=== PATIENT | female | born 1950 | race Caucasian/White ===

== ENCOUNTER 2018-04-25 00:29 | Outpatient (CLI) | payer MEDICARE, SELFPAY ==
--- NOTE | 2018-04-25 08:49 | DI.MAMMO_ITS ---
SYMPTOMS/DIAGNOSIS: SCREENING, Z12.39 MAMMOGRAMS: Mammograms were interpreted according to the usual protocol including computer analysis with CAD system, tomosynthesis and C view imaging. Comparison is with the prior examinations. No suspicious masses or microcalcifications are seen. There has been no significant change compared to the prior examination. The nodule in the supraareolar region of the right breast is unchanged. Skin and axillae are unremarkable. IMPRESSION: No evidence for malignancy. Yearly mammography is recommended. Category 2, breast density B. MQSA ASSESSMENT OF FINDINGS: Negative with benign findings. Category 2. Patient will receive a letter notifying them of these results. BI-RADS category B. There are scattered areas of fibroglandular density.
== END 2018-04-25 00:49 ==
PROVIDERS: PCP Nurse Practitioner; Visit Provider Nurse Practitioner
DX: Z12.31 Encounter for screening mammogram for malignant neoplasm of breast (principal)
CPT/HCPCS: 77063; 77067

== ENCOUNTER 2018-09-30 08:57 | Outpatient (REF) | payer MEDICARE, SELFPAY ==
[2018-09-30 13:36] LABS: ALT 34 U/L (12-78); AST 22 U/L (15-37); Albumin 3.9 g/dL (3.4-5.0); Alkaline Phosphatase 79 U/L (46-116); Anion Gap 8.4 mmol/L (3-11); BUN 19 mg/dL (7-18); Bilirubin, Total 0.5 mg/dL (0.2-1.0); CO2 30.6 mmol/L (21.0-32.0); CREATININE 0.91 mg/dL (0.55-1.02); Calcium 9.1 mg/dL (8.5-10.1); Chloride 102 mmol/L (98-107); Cholesterol 158 mg/dL (50-200); Glucose 89 mg/dL (70-100); HDL Cholesterol 73 mg/dL (40-60); LDL CHOLESTEROL 66 mg/dL (<100); Sodium 141 mmol/L (136-145); TSH (W/Ref FT4) 1.84 uIU/mL (0.358-3.74); Total Protein 6.6 g/dL (6.4-8.2); Triglyceride 85 mg/dL (30-150)
== END 2018-09-30 09:17 ==
LOC: NCHCN 08:57
PROVIDERS: PCP Nurse Practitioner; Visit Provider Nurse Practitioner
DX: E78.5 Hyperlipidemia, unspecified (principal); I10 Essential (primary) hypertension; E03.9 Hypothyroidism, unspecified
CPT/HCPCS: 80053; 80061; 83721; 84443

== ENCOUNTER 2019-05-22 11:08 | Emergency (ER) | payer MEDICARE, OTHER, SELFPAY ==
[2019-05-22] VITALS (41 sets, daily range): BP systolic 109–184; BP diastolic 51–95; PULSE 65–88; RESP 12–25; TEMP 36.9; O2SAT 89–99
--- NOTE | 2019-05-22 11:10 | W.ED.GENAD ---
Discharge Plan Disposition Patient Disposition: HOME Condition: Improving Discharge Details Chief Complaint: Dizzy/Sync Clinical Impression: Vertigo, Nausea Primary Care Provider: Gail Salvador ED Provider: Angela Vásquez Home Meds and New Rx's Prescriptions: New meclizine 12.5 mg tablet 12.5 mg PO TID PRN (Reason: dizziness) Qty: 10 RF: 0 ondansetron HCl [Zofran] 4 mg tablet 4 mg PO Q6H PRN (Reason: nausea and vomiting) Qty: 7 RF: 0 Continued clobetasol 15 GM cream 1 applic Topical BID PRN PRNRF: 0 Premarin 30 GM cream 1 applic VG DIRECTED RF: 0 acetaminophen 325 MG capsule 650 mg PO Q6H PRN PRNRF: 0 calcium carbonate-vitamin D3 [Calcium 500 + D] 1 EACH tablet 4 ea PO DAILY RF: 0 atorvastatin [Lipitor] 20 MG tablet 20 mg PO DAILY RF: 0 atenolol 100 MG tablet 100 mg PO DAILY RF: 0 amlodipine 5 MG tablet 5 mg PO DAILY RF: 0 levothyroxine 88 MCG tablet 88 mcg PO DAILY RF: 0 hydrochlorothiazide 12.5 MG capsule 12.5 mg PO DAILY RF: 0 lisinopril 40 MG tablet 40 mg PO DAILY RF: 0 cholecalciferol (vitamin D3) [Vitamin D3] 2,000 UNIT capsule 2,000 unit PO DAILY RF: 0 ibuprofen 200 MG tablet 800 mg PO 5X/DAY RF: 0 Discharge Instructions Instructions: Vertigo (ED), Acute Nausea and Vomiting (ED) Additional Instructions: Take the Zofran as needed and directed for nausea and vomiting. Take the meclizine as needed and directed for dizziness. Drink plenty of fluids and get plenty of rest. Follow-up with your primary care doctor next week for reevaluation. Return to the emergency department if you develop any worsening or new concerning symptoms. Discharge Data Discharge Physician: Angela Vásquez Medical Decision Making 1115 -- 69-year-old female with history of hypertension, hyperlipidemia, scoliosis presents with dizziness, nausea and generalized weakness with occasional body tingling since this morning. She also expressed concern about her blood pressure. She states it is usually 140s over 80s and today was 180s over 80s. BP on arrival 184/72. Shortly after placement on stretcher and during evaluation patient became nauseous and was dry heaving. This was associated with head movement during examination and appears likely consistent with vertigo. EKG was obtained which notes an abnormally wide QRS consistent with an interventricular conduction defect but otherwise appears sinus with diffuse ST depression and T wave inversion. This does not appear overall significantly different from her previous EKG other than more pronounced T wave inversion in 1, 2 and aVL. Presentation appears most consistent with vertigo, but considering age and history, will check screening labs, chest x-ray and CT head. She was given Zofran and her symptoms significantly improved. We will give a dose of meclizine, fluids and reassess. 1250 -- labs reviewed and unremarkable. Troponin negative. Urinalysis negative. CT head and chest x-ray appear negative for acute disease but final reads pending. Patient got up to use commode and began dry heaving and complaining of severe dizziness. She given a dose of Compazine but without relief. Will give another dose of meclizine and Zofran and reassess. 1350 -- patient states she feels slightly better. Offered to do the Lola maneuver to see if this provides her relief but she states she is not too much pain with her scoliosis. Will give a dose of Toradol IM and Valium p.o. to also help with the dizziness and then reassess. 1500 -- Lola maneuver performed and pt felt much better. Will give crackers and water and reassess after p.o. challenge. 1530 -- patient able to tolerate p.o. and is requesting to go home. She was able to ambulate and denies any dizziness or nausea. We will send home with Zofran and meclizine. She is advised to follow-up with her primary care doctor for reevaluation and to return here if worse. Medical Records Medical records reviewed: Yes I reviewed the patient's medical records. Imaging Data Radiologic Study: Radiologist's impression: XR CHEST 2V PA LATERAL INDICATION: dizziness, nausea, fatigue, r/o acute disease. COMPARISON: LUMBAR SPINE AP, LAT from 05/03/2016 TECHNIQUE: 2D digital imaging was performed. FINDINGS: The heart is enlarged. The aorta is tortuous. There underlying fibrotic changes. No infiltrate, effusion or pulmonary edema is seen. There is a compression fracture of lower thoracic spine, unchanged from 03 May 2016. IMPRESSION: No acute abnormality. CT HEAD WO` CLINICAL HISTORY: dizziness, nausea, r/o acute disease TECHNIQUE: Noncontrast COMPARISON: No exams were available for comparison FINDINGS: No intracranial hemorrhage, mass or infarct is seen. There is no significant atrophy. No skull fracture is seen. The sinuses and mastoid air cells appear clear where visualized. IMPRESSION: No acute abnormality. Lab Data Lab results reviewed: Yes I reviewed the patient's lab results. Labs: Laboratory Tests Range/Units 05/22/19 05/22/19 05/22/19 11:17 11:17 12:22 WBC (4.4-10.8) k/cumm 7.25 RBC (4.00-5.20) m/cumm 4.73 Hgb (12.0-15.5) g/dL 14.2 Hct (36.0-46.0) % 43.7 MCV (80-95) fL 92.4 MCH (27.0-33.0) pg 30.0 MCHC (32.0-36.0) g/dL 32.5 RDW (11.7-14.6) % 12.5 Plt Count (130-400) x1000/uL 286 MPV (8.0-11.0) fL 8.9 Immature Gran % 0.1 Neutrophils % 81.2 Lymphocytes % 10.9 Monocytes % 4.8 Eosinophils % 2.6 Basophils % 0.4 Absolute Neutrophils (1.2-6.7) k/cumm 5.88 Absolute Lymphocytes (1.2-3.4) k/cumm 0.79 L Absolute Monocytes (0.11-0.7) k/cumm 0.35 Absolute Eosinophils (0.0-0.7) k/cumm 0.19 Absolute Basophils (0.0-0.2) k/cumm 0.03 Sodium (136-145) mmol/L 135 L Potassium (3.5-5.1) mmol/L 3.6 Chloride (98-107) mmol/L 96 L Carbon Dioxide (21.0-32.0) mmol/L 28.9 Anion Gap (3-11) mmol/L 10.1 BUN (7-18) mg/dL 16 Creatinine (0.55-1.02) mg/dL 0.92 Estimated GFR/1.73 m2 (mL/min/1.73m2) >= 60.00 Glucose (70-100) mg/dL 138 H Calcium (8.5-10.1) mg/dL 9.5 Magnesium (1.8-2.4) mg/dL 1.9 Total Bilirubin (0.2-1.0) mg/dL 0.6 AST (15-37) U/L 20 ALT (14-59) U/L 32 Alkaline Phosphatase (46-116) U/L 88 Troponin I (0.00-0.06) ng/mL < 0.05 Total Protein (6.4-8.2) g/dL 7.7 Albumin (3.4-5.0) g/dL 4.5 Urine Color (Yellow) Yellow Urine Clarity (Clear) Clear Urine pH (5-8) 7.5 Ur Specific [place] (1.005-1.025) 1.020 Urine Protein (Negative) mg/dL Negative Urine Ketones (Negative) mg/dL Negative Urine Blood (Negative) Trace-intact H Urine Nitrite (Negative) Negative Urine Bilirubin (Negative) Negative Urine Urobilinogen (Up TO 0.2) EU/dL 0.2 Ur Leukocyte Esterase (Negative) Negative Urine RBC (0-2) 3-5 H Urine WBC (0-5) HPF Negative Ur Epithelial Cells (Negative) HPF Negative Urine Crystals (Negative) HPF Negative Urine Bacteria (Negative) HPF Rare Urine Casts (Negative) LPF Negative Urine Mucus (Negative) Negative Urine Other (Negative) Few renal Ur Culture Indicated? No Urine Glucose (Negative) mg/dL Negative ECG Data Attestation: I personally reviewed and interpreted this ECG (s) as follows: Interpretation: 77 bpm. Sinus. Intraventricular conduction defect. Diffuse ST depression. T wave inversion in 1, 2, aVL, 3, aVF, V2, V4 V6. Overall not significantly different from old EKG from 2005 other than more pronounced T wave inversion in 1, 2 and aVL and downward QRS in V3. HPI General Mode of arrival: ambulatory. Date/Time Provider Initiated Documentation: 05/22/19 11:09. Limitations to Documentation: no limitations. Information obtained by: patient. HPI Narrative: Patient is a 69-year-old female with a history of hypertension, hyperlipidemia who presents for dizziness, nausea and all of her body generalized weakness and occasional tingling that started this morning upon wakening. She states that the dizziness is her worst symptom which is described as lightheadedness but also a spinning sensation that is worse with head movement. She denies any recent illness, fever, vomiting, diarrhea or recent hospital admission. She states she has had dizziness and nausea in the past but states this is the worst presentation thus far. She denies any headache, blurry vision, neck pain, chest pain, shortness of breath, abdominal pain, urinary symptoms, slurred speech, facial droop or unilateral extremity weakness or numbness. Related Data Home Medications Medication Instructions Recorded Confirmed Premarin 1 applic VG DIRECTED 04/24/16 05/22/19 acetaminophen 650 mg PO Q6H PRN PRN 04/24/16 05/22/19 amlodipine 5 mg PO DAILY 04/24/16 05/22/19 atenolol 100 mg PO DAILY 04/24/16 05/22/19 atorvastatin [Lipitor] 20 mg PO DAILY 04/24/16 05/22/19 calcium carbonate-vitamin D3 4 ea PO DAILY 04/24/16 05/22/19 [Calcium 500 + D] cholecalciferol (vitamin D3) 2,000 unit PO DAILY 04/24/16 05/22/19 [Vitamin D3] clobetasol 1 applic TOPICAL BID PRN PRN 04/24/16 05/22/19 hydrochlorothiazide 12.5 mg PO DAILY 04/24/16 05/22/19 levothyroxine 88 mcg PO DAILY 04/24/16 05/22/19 lisinopril 40 mg PO DAILY 04/24/16 05/22/19 ibuprofen 800 mg PO 5X/DAY 04/27/16 05/22/19 meclizine 12.5 mg PO TID PRN #10 tab 05/22/19 ondansetron HCl [Zofran] 4 mg PO Q6H PRN #7 tab 05/22/19 Previous Rx's Medication Instructions Recorded meclizine 12.5 mg PO TID PRN #10 tab 05/22/19 ondansetron HCl [Zofran] 4 mg PO Q6H PRN #7 tab 05/22/19 Allergies Allergy/AdvReac Type Severity Reaction Status Date / Time iodine Allergy Severe Unverified 05/22/19 11:19 latex Allergy Mild Unverified 05/22/19 11:19 Penicillins Allergy Mild Unverified 05/22/19 11:19 mold Allergy Unknown Unverified 05/22/19 11:19 Review of Systems All systems reviewed & are unremarkable except as noted in HPI and below Constitutional Constitutional: Reports as per HPI, Denies chills, Reports fatigue, Denies fever(s) and Denies headache(s) Eyes Eyes: Denies blurry vision ENT Ears, Nose, Mouth, and Throat: Reports dizziness, Denies headache(s), Denies sore throat and Denies throat swelling Cardiovascular Cardiovascular: Denies chest pain and Denies dyspnea Respiratory Respiratory: Denies cough and Denies dyspnea Gastrointestinal Gastrointestinal: Denies abdominal pain, Denies diarrhea, Reports nausea and Denies vomiting Genitourinary Genitourinary: Denies hematuria and Denies dysuria Musculoskeletal Musculoskeletal: Denies back pain and Denies numbness Integumentary/Breasts Skin/Breast: Denies lesions and Denies rash Neurologic Neurologic: Reports dizziness, Denies headache(s), Denies focal weakness and Denies numbness Endocrine Endocrine: Reports fatigue Allergic/Immunologic Allergic/Immunologic: Denies throat swelling [facility] Medical History HTN (hypertension) (Chronic) Hx of hyperlipidemia (Acute) Thyroid nodule (Acute) Multiple, benign Surgical History History of hysterectomy (Chronic) due to h/o large fibroid tumor, benign History of sterilization procedure (Acute) History of thyroidectomy (Chronic) Social History Smoking/Tobacco Use Status: Never Alcohol Intake: never Drug use: Never Substance use type: does not use Do you feel safe at home: Yes Do you feel safe in your relationship?: Yes Exam Const General: cooperative and healthy appearing Orientation: alert and awake HENMT Head: normal to inspection Ears: hearing grossly normal bilaterally, external ears normal and TM's normal bilaterally General nose exam: external nose normal Face and sinus: normal facial exam Mouth: oral mucosae normal Teeth and gingiva: dentition normal Throat: posterior oropharynx normal Eyes General: appearance normal, both eyes and all related structures Eyelids: eyelids normal Pupils: PERRL EOM: EOM intact bilaterally Neck Neck: normal visual inspection Lymphatic: no lymphadenopathy noted Chest Chest: normal inspection of the chest Resp Effort & Inspection: normal respiratory effort and able to speak in complete sentences Auscultation: clear to auscultation bilaterally Cardio Rate: regular rate Rhythm: regular rhythm GI Inspection: normal to inspection Palpation: soft, not firm, no guarding, no hepatosplenomegaly, no masses and nontender Auscultation: normal bowel sounds Back/Spine/Pelvis Thoracic/Lumbar Spine: kyphosis (due to h/o scoliosis) Skin General skin exam: no rashes or lesions noted Neuro General: alert, awake, oriented x3, moves all extremities and no meningeal signs Cranial Nerves: CN's II-XI intact bilaterally Cognition: normal cognition Speech: speech normal Gait: normal gait Motor: muscle tone normal throughout and strength 5/5 throughout Sensory Exam: no sensory deficits noted Extrem General: normal to inspection, full ROM and normal capillary refill Psych Appearance: grossly normal Mental Status: mental status grossly normal Speech and Movement: speech and movement normal Affect: normal affect Thought Process: normal
[2019-05-22] MEDS: Ondansetron 4 MG/2 ML VIAL ×2 (11:30→13:14)
[2019-05-22] MEDS: Normal Saline 1,000 ML 1000 ML IV (11:30)
--- NOTE | 2019-05-22 11:34 | DI.RAD_ITS ---
EXAM: XR CHEST 2V PA LATERAL INDICATION: dizziness, nausea, fatigue, r/o acute disease. COMPARISON: LUMBAR SPINE AP, LAT from 05/03/2016 TECHNIQUE: 2D digital imaging was performed. FINDINGS: The heart is enlarged. The aorta is tortuous. There underlying fibrotic changes. No infiltrate, e ffusion or pulmonary edema is seen. There is a compression fracture of lower thoracic spine, [facility] ed from 03 May 2016. IMPRESSION: No acute abnormality.
[2019-05-22 11:54] LABS: Abs Immature Grans 0.01 k/cumm (0.0-0.09); Absolute Basophil Count 0.03 k/cumm (0.0-0.2); Absolute Eosinophil Count 0.19 k/cumm (0.0-0.7); Absolute Lymphocyte Count 0.79 k/cumm (1.2-3.4); Absolute Monocyte Count 0.35 k/cumm (0.11-0.7); Absolute Neutrophil Count 5.88 k/cumm (1.2-6.7); Basophils % 0.4; Eosinophils % 2.6; HCT 43.7 % (36.0-46.0); HGB 14.2 g/dL (12.0-15.5); Immature Grans % 0.1; Lymphocytes % 10.9; Mean Corp. HGB Concentration 32.5 g/dL (32.0-36.0); Mean Corpuscular Volume 92.4 fL (80-95); Mean Platelet Volume 8.9 fL (8.0-11.0); Monocytes % 4.8; Neutrophils % 81.2; Platelet Count 286 x1000/uL (130-400); RBC 4.73 m/cumm (4.00-5.20); RBC Distribution Width 12.5 % (11.7-14.6); White Blood Cell Count 7.25 k/cumm (4.4-10.8)
--- NOTE | 2019-05-22 11:59 | DI.CT_ITS ---
EXAM: CT HEAD WO` CLINICAL HISTORY: dizziness, nausea, r/o acute disease TECHNIQUE: Noncontrast COMPARISON: No exams were available for comparison FINDINGS: No intracranial hemorrhage, mass or infarct is seen. There is no significant atrophy. No skull frac ture is seen. The sinuses and mastoid air cells appear clear where visualized. IMPRESSION: No acute abnormality.
[2019-05-22 12:08] LABS: ALT 32 U/L (14-59); AST 20 U/L (15-37); Albumin 4.5 g/dL (3.4-5.0); Alkaline Phosphatase 88 U/L (46-116); Anion Gap 10.1 mmol/L (3-11); BUN 16 mg/dL (7-18); Bilirubin, Total 0.6 mg/dL (0.2-1.0); CO2 28.9 mmol/L (21.0-32.0); CREATININE 0.92 mg/dL (0.55-1.02); Calcium 9.5 mg/dL (8.5-10.1); Chloride 96 mmol/L (98-107); Glucose 138 mg/dL (70-100); Magnesium 1.9 mg/dL (1.8-2.4); Potassium 3.6 mmol/L (3.5-5.1); Sodium 135 mmol/L (136-145); Total Protein 7.7 g/dL (6.4-8.2)
[2019-05-22 12:14] LABS: Troponin I < 0.05 ng/mL (0.00-0.06)
[2019-05-22] MEDS: Prochlorperazine 10 MG/2 ML VIAL (12:15)
[2019-05-22] MEDS: Meclizine 25 MG TAB PO ×2 (12:16→12:46)
[2019-05-22 12:35] LABS: Bilirubin Negative (Negative); Blood Trace-intact (Negative); Clarity Clear (Clear); Glucose Negative (Negative); Ketones Negative (Negative); Leukocyte Esterase Negative (Negative); Nitrite Negative (Negative); Urobilinogen 0.2 EU/dL (Up TO 0.2); pH 7.5 (5-8)
[2019-05-22 12:52] LABS: Bacteria Rare HPF (Negative); C & S Indicated? No; Casts Negative LPF (Negative); Crystals Negative HPF (Negative); Epithelial Cells Negative HPF (Negative); Mucus Negative (Negative); Other Cells Few Renal (Negative); WBC Negative HPF (0-5)
[2019-05-22] MEDS: Normal Saline 250 ML IV (13:16)
--- NOTE | 2019-05-22 13:18 | NUR.NOTE ---
Nursing Note: pt had reported initial improvement with nausea from initial dose of zofran. pt becomes very dizzy and nauseated with any movement. pt has been up and down to the commode several times independently (takes a diuretic). pt reports no improvement with compazine. no changes with meclizine. md aware. continue to monitor. has been in and out of the room.
--- NOTE | 2019-05-22 13:24 | DI.VRAD_ITS ---
PROCEDURE INFORMATION: Exam: CT Head Without Contrast Exam date and time: 05/22/2019 11:59 AM Clinical history: 69 years old, female; Dizziness and other: Nausea; Patient HX: Dizziness, nausea; Additional info: R/O acute disease; Sent stroke protocol per ED provider TECHNIQUE: Imaging protocol: Computed tomography of the head without contrast. Other technique: STROKE PROTOCOL was implemented. COMPARISON: No relevant prior studies available. FINDINGS: Brain: No CT evidence of mass hemorrhage or acute infarction. Midline shift: No bleed, mass, or shift of structures. Mild atrophy. Areas of low attenuation in the periventricular white matter believed to be the manifestatiion of small vessel ischemic disease. Ventricles: Normal. No ventriculomegaly. Bones/joints: Unremarkable. No acute fracture. Sinuses: Visualized sinuses are unremarkable. No fluid levels. Mastoid air cells: Visualized mastoid air cells are well aerated. Soft tissues: Unremarkable. IMPRESSION: No acute intracranial process is appreciated. ASSESSMENT: ASPECTS ([place] Stroke Program Early CT Score) is 10. Dictated and Authenticated by: Charles Quispe MD. Ordering:BRITTNY Miller MD
[2019-05-22] MEDS: Ketorolac 30 MG/ML VIAL IVP (14:01)
[2019-05-22] MEDS: diazePAM 5 MG TAB PO (14:01)
[2019-05-22] MEDS: Ondansetron O.D.T. 4 MG TABEF, 3 TABS/BTL PO (15:41)
== END 2019-05-22 15:45 | disposition home or self-care (01) ==
PROVIDERS: Emergency Provider Physician Assistant; PCP Nurse Practitioner
DX: R42 Dizziness and giddiness (principal); R11.0 Nausea; I10 Essential (primary) hypertension
CPT/HCPCS: 36415; 80053; 93005; 96361; 96374; 96375; 99285; 70450; 71046; 81003; 81015; 83735; 84484; 85025; 93010; J0780; J1885; J2405

== ENCOUNTER 2019-10-07 12:17 | Outpatient (REF) | payer MEDICARE, OTHER, SELFPAY ==
[2019-10-07 14:03] LABS: ALT 33 U/L (14-59); AST 20 U/L (15-37); Alkaline Phosphatase 79 U/L (46-116); Anion Gap 6.4 mmol/L (3-11); BUN 19 mg/dL (7-18); Bilirubin, Total 0.5 mg/dL (0.2-1.0); CO2 30.6 mmol/L (21.0-32.0); CREATININE 0.89 mg/dL (0.55-1.02); Calcium 8.8 mg/dL (8.5-10.1); Calculated LDL 71 mg/dL (<100); Chloride 103 mmol/L (98-107); Cholesterol 165 mg/dL (<200); Glucose 97 mg/dL (74-106); HDL Cholesterol 80 mg/dL (40-60); Potassium 3.9 mmol/L (3.5-5.1); Sodium 140 mmol/L (136-145); TSH (W/Ref FT4) 2.06 uIU/mL (0.36-3.74); Total Protein 6.5 g/dL (6.4-8.2); Triglyceride 72 mg/dL (<150)
== END 2019-10-07 12:37 ==
LOC: NCHCN 12:17
PROVIDERS: PCP Nurse Practitioner; Visit Provider Nurse Practitioner
DX: I10 Essential (primary) hypertension (principal); E03.9 Hypothyroidism, unspecified; E78.5 Hyperlipidemia, unspecified
CPT/HCPCS: 80053; 80061; 84443

== ENCOUNTER 2020-01-12 21:39 | Outpatient (REF) | payer MEDICARE, OTHER, SELFPAY ==
[2020-01-12 19:22] LABS: Ferritin 29 ng/mL (8-252)
== END 2020-01-12 21:59 ==
LOC: NCHCN 21:39
PROVIDERS: PCP Nurse Practitioner; Visit Provider Nurse Practitioner
DX: R00.2 Palpitations (principal); G25.81 Restless legs syndrome
CPT/HCPCS: 82728

== ENCOUNTER 2020-06-28 00:24 | Outpatient (CLI) | payer MEDICARE, OTHER, SELFPAY ==
--- NOTE | 2020-06-28 | DI.MAMMO_ITS ---
EXAM: MG MAMMO SCREENING CLINICAL HISTORY: SCREENING,Z12.39. TECHNIQUE: Bilateral full field digital CC and MLO mammographic images were obtained with 3D tomosyn thesis and utilizing computer aided detection (CAD). COMPARISON: Prior mammograms dating back to 2011, the most recent being April 2018. FINDINGS: There are no new dominant masses nor malignant appearing microcalcification groups. There is no new architectural distortion nor skin thickening-retraction. IMPRESSION: No radiographic evidence of malignancy. BI-RADS Category 1 - Negative Breast Density - Category B - Scattered areas of fibroglandular density Breast density Category C or D implies that the patient has dense breast tissue. Dense breast tissue can make it harder to find cancer on a mammogram. Dense breast tissue is also associated with an incr eased risk of breast cancer. This information about the result of the mammogram report was provided to the patient to raise their awareness. Use this report when you speak with the patient about their risks for breast cancer, which includes their family history. At that time, you may recommend additional screening tests (Ultrasoun d or MRI) as these tests may add significant information. A negative radiographic report should not delay biopsy if a dominant or clinically suspicious mass is present. Up to ten percent of cancers are not identified on mammography. A negative report may reinforce clinical impression. Adenosis and dense breasts may obscure an underlying neoplasm. False positive reports average 6 to 10%. Patient will receive a letter notifying them of these results.
== END 2020-06-28 00:44 ==
PROVIDERS: PCP Nurse Practitioner; Visit Provider Nurse Practitioner
DX: Z12.31 Encounter for screening mammogram for malignant neoplasm of breast (principal)
CPT/HCPCS: 77063; 77067

== ENCOUNTER 2020-09-14 09:57 | Outpatient (REF) | payer MEDICARE, OTHER, SELFPAY ==
[2020-09-14 17:40] LABS: ALT 27 U/L (14-59); AST 18 U/L (15-37); Albumin 4.1 g/dL (3.4-5.0); Alkaline Phosphatase 81 U/L (46-116); Anion Gap 10.1 mmol/L (3-11); BUN 19 mg/dL (7-18); Bilirubin, Total 0.4 mg/dL (0.2-1.0); CO2 27.9 mmol/L (21.0-32.0); CREATININE 0.9 mg/dL (0.55-1.02); Calculated LDL 68 mg/dL (<100); Chloride 97 mmol/L (98-107); Cholesterol 165 mg/dL (<200); Glucose 96 mg/dL (74-106); HDL Cholesterol 80 mg/dL (40-60); Potassium 4.4 mmol/L (3.5-5.1); Sodium 135 mmol/L (136-145); TSH (W/Ref FT4) 0.98 uIU/mL (0.36-3.74); Total Protein 6.6 g/dL (6.4-8.2); Triglyceride 85 mg/dL (<150)
== END 2020-09-14 09:58 | disposition home or self-care (01) ==
LOC: NCHCN 09:57
PROVIDERS: PCP Nurse Practitioner; Visit Provider Nurse Practitioner
DX: I10 Essential (primary) hypertension (principal); E78.5 Hyperlipidemia, unspecified; E03.9 Hypothyroidism, unspecified
CPT/HCPCS: 80053; 80061; 84443

== ENCOUNTER → 2021-01-28 08:46 | Outpatient (BNVA) | payer MEDICARE, OTHER, SELFPAY | PROVIDERS: PCP Nurse Practitioner; Referring Provider Nurse Practitioner; Visit Provider Physical Therapy Assistant | DX: Z12.11 Encounter for screening for malignant neoplasm of colon (principal); I10 Essential (primary) hypertension ==

== ENCOUNTER 2021-02-07 09:05 | Day surgery (SDC) | payer MEDICARE, OTHER, SELFPAY ==
--- NOTE | 2021-02-07 06:00 | RT.EKG_ITS ---
APPROVED REPORT Exam: Resting ECG Reason for Exam: Pre-op Patient Location: O HR:72 bpm ECG Measurements Heart Rate 72 AXIS DC 179 P 62 QRSd 169 QRS 27 QT 465 T 199 QTc 510 Conclusion Sinus rhythm...normal P axis, V-rate 60- 99 Left bundle branch block...QRSd>120, broad/notched R
--- NOTE | 2021-02-07 06:43 | W.COLOREPORT ---
Date of service: 02/07/21 Time of Service: : Colonoscopy Report Date of procedure: 02/07/21 Pre-op diagnosis general: Colon Cancer Screening Post-op diagnosis procedure note: same (diverticulosis and internal hemorrhoids) Procedure: Colonoscopy Surgeon: Greta Santoro Anesthesia Type: General:No Airway (ASA 2/ Kel Ross CRNA) Estimated blood loss (mL): 0 Pathology: none sent Complications: None Disposition: same day Indications: The patient is here for Colonoscopy pre-op. Her last screening was in 2010 and was unremarkable. She has no family history of colon cancer. She has not had any bowel habit changes. -Discussed colonoscopy bowel prep as well as the procedure. Discussed possible complications of the procedure to include bleeding, pain, perforation, missed small lesion/polyp, sore throat, aspiration and adverse reaction to the medications. Questions were answered to patient?s satisfaction. No guarantees were implied or given. Prep: Miralax/Dulcolax Procedure Start Time: :22 Procedure End Time: 10:48 Retraction Time: 13 minutes Findings: mild scattered diverticulosis Grade 1 internal hemorrhoids Procedure Description: After informed consent was obtained the patient was taken to the procedure room and placed in a left decubitous position. Monitors were applied and a time out was done. The patients name, date of , procedure, allergies to medications and metal in their body was reviewed. The patient was then sedated. Once sedated and comfortable a rectal exam was done. External exam was normal. Internal exam revealed a normal sphincter tone and no palpable masses. The scope was then introduced and retro-flexed. Grade 1 internal hemorrhoids were noted. No polyps or masses were identified on retro-flexion. The scope was then advanced to the cecum with some difficulty due to a tortous colon. The ileocecal vlave and appendiceal orifice were identified. The prep was adequate. The scope was then slowly retracted over 13 minutes back into the rectum. There were no polyps. There was mild scattered diverticulosis noted. The scope was removed and the patient was woken up and taken back to Same day surgery in stable condition. The patient tolerated the procedure well and there were no immediate complications. Follow up: The patient should follow up in as needed.
--- NOTE | 2021-02-07 06:44 | W.PM.DSUDISC ---
Discharge Plan Disposition Patient Disposition: HOME Condition: Good Discharge Details Reason For Visit: Colonoscopy Attending Provider: Greta Santoro Primary Care Provider: Gail Salvador Home Meds and New Rx's Prescriptions: Continued acetaminophen 500 mg tablet 1,000 mg PO BID & HS RF: 0 tramadol 50 mg tablet 25 mg PO BID PRNRF: 0 metoprolol tartrate 50 mg tablet 50 mg PO BID RF: 0 calcium carbonate-vitamin D3 [Calcium 500 + D] 1 EACH tablet 4 ea PO DAILY RF: 0 atorvastatin [Lipitor] 20 MG tablet 20 mg PO DAILY RF: 0 amlodipine 5 MG tablet 5 mg PO DAILY RF: 0 levothyroxine 88 MCG tablet 88 mcg PO DAILY RF: 0 hydrochlorothiazide 12.5 MG capsule 12.5 mg PO DAILY RF: 0 lisinopril 40 MG tablet 40 mg PO DAILY RF: 0 cholecalciferol (vitamin D3) [Vitamin D3] 2,000 UNIT capsule 2,000 unit PO DAILY RF: 0 ibuprofen 200 mg tablet 800 mg PO BID RF: 0 meclizine 12.5 mg tablet 12.5 mg PO TID PRN (Reason: dizziness) Qty: 10 RF: 0 Discontinued polyethylene glycol 3350 17 gram/dose powder 238 g PO ONCE Qty: 238 RF: 0 bisacodyl [Dulcolax (bisacodyl)] 5 mg tablet,delayed release (DR/EC) 5 mg PO ONCE Qty: 4 RF: 0 Discharge Instructions Instructions: Diverticulosis (DC), Hemorrhoids (DC) Additional Instructions: Findings: mild diverticulosis internal hemorrhoids Follow up: as needed Please call if you develop: fevers >101.5 Nausea or Vomiting Abdominal pain that is not transient Rectal bleeding that is more then a tbsp A hard abdomen and inability to pass gas DAY SURGERY UNIT POST ENDOSCOPY INSTRUCTIONS Instructions for everyone who is given Anesthesia: For your safety, please do the following for the next 24 Hours: a. Do not drive or operate dangerous equipment b. Do not drink alcohol beverages or use any recreational drugs for the first 24 hours or while taking pain medications. The medications in your body may have a reaction that can be dangerous. c. Do not make any important decisions or sign any important papers 1. Generally there are no restrictions on your activity after a day or so has gone by, but you may feel a bit fatigued for a few days. 2. After you arrive home you may have a light meal and return to a normal diet as you can tolerate it without feeling sick to your stomach. 3. After surgery, you may feel pain or discomfort. This should be only transient, but if it persists please contact your doctor. 4. If there are any questions regarding the findings of your procedure, please feel free to contact your doctor. 6. If you are unable to contact your doctor with a problem, contact the hospital at [phone]. 7. Continue all your regular medications unless directed otherwise. I understand the above instructions and have no questions. Signature of Patient or Responsible Adult Escort Date/Time Name of Responsible Adult Escort Signature of Nurse Date/Time Activity:: Activity as Tolerated Diet:: High Fiber Discharge Orders Discharge Orders: Discharge Order (Routine); Ordered 02/07/21 Ordered By: Greta Santoro
[2021-02-07 09:44] VITALS: BP 138/63; PULSE 68; RESP 16; TEMP 36.3; O2SAT 97
--- NOTE | 2021-02-07 10:02 | W.ANESPRE ---
General Info Date of Service Date Performed: 02/07/21 Height: 5 ft 3 in Weight: 59.6 kg Body Mass Index (BMI): 23.3 Surgical Procedure: Operation Date: 02/07/21 09:50 Proposed Procedures Side Surgeon p Dustin Santoro MD Meds Allergies and Home Medications Allergies Allergy/AdvReac Type Severity Reaction Status Date / Time iodine Allergy Severe Other (See Unverified 02/07/21 09:31 Comment) latex Allergy Mild Itching Unverified 02/07/21 09:31 Penicillins Allergy Mild Swelling/Ed Unverified 02/07/21 09:31 edson mold Allergy Unknown Anaphylaxis Unverified 02/07/21 09:31 Home Medication Medication Instructions Recorded amlodipine 5 mg PO DAILY 04/24/16 atorvastatin [Lipitor] 20 mg PO DAILY 04/24/16 calcium carbonate-vitamin D3 4 ea PO DAILY 04/24/16 [Calcium 500 + D] cholecalciferol (vitamin D3) 2,000 unit PO DAILY 04/24/16 [Vitamin D3] hydrochlorothiazide 12.5 mg PO DAILY 04/24/16 levothyroxine 88 mcg PO DAILY 04/24/16 lisinopril 40 mg PO DAILY 04/24/16 meclizine 12.5 mg PO TID PRN #10 tab 05/22/19 metoprolol tartrate 50 mg tablet 50 mg PO BID 10/26/20 tramadol 50 mg tablet 25 mg PO BID PRN tab 10/26/20 acetaminophen 500 mg tablet 1,000 mg PO BID & HS tab 01/28/21 bisacodyl 5 mg tablet,delayed 5 mg PO ONCE #4 tab 01/28/21 release ibuprofen 200 mg tablet 800 mg PO BID tab 01/28/21 polyethylene glycol 3350 17 238 g PO ONCE #238 g 01/28/21 gram/dose oral powder Current Visit Medications: Current Medications Generic Name Dose Route Start Last Admin Trade Name Freq PRN Reason Stop Dose Admin Hyoscyamine Sulfate 0.125 mg 02/07/21 06:45 Hyoscyamine 0.125 Mg Sl/Oral/Chew SL DIRECTED PRN Ringer's Solution 1,000 mls @ 80 mls/hr 02/07/21 06:00 IV 03/06/21 23:59 INFUSION JIMMIE IV Miscellaneous Supplies 1 each 02/07/21 06:00 Iv Access IV 03/06/21 23:59 DIRECTED JIMMIE Ondansetron HCl 4 mg 02/07/21 06:45 Ondansetron 4 Mg/2 Ml Vial IVP Q4H PRN PRN Nausea / Vomiting Sodium Chloride 0 ml 02/07/21 06:00 Normal Saline Flush 10 Ml Syr IV 03/06/21 23:59 PRN PRN Sodium Chloride 0 ml 02/07/21 06:00 Normal Saline 10 Ml Vial IJ 03/06/21 23:59 DIRECTED PRN Sterile Water 0 ml 02/07/21 06:00 Water,Injection,Sterile 10 Ml Vial IJ 03/06/21 23:59 DIRECTED PRN PFSH Active Problems Active Problems: Problem Status Onset Code Screening for colon cancer Z12.11 Joint pain M25.50 Restless leg syndrome G25.81 Palpitations R00.2 Kyphoscoliosis M41.9 Medical History Medical History (Updated 02/07/21 @ 09:51 by Nesha Jarrell) Enlarged heart enlarged heart, per pt. History of abnormal electrocardiogram Per pt. stated I just want to let you know that whenever you hook me up to the cardiac monitors my EKG will be all over the place, and I havent had an EKG in 10+ years *Pt. unable to specify what this meant further--will obtain EKG per anesthesia provider (JOÃO) on DOS. HTN (hypertension) Hx of hyperlipidemia Thyroid nodule Multiple, benign Medical History Comments:: LBBB Documented in 2005 Surgical History Surgical History (Updated 02/07/21 @ 09:51 by Nesha Jarrell) History of cardiac cath History of colonoscopy History of hysterectomy due to h/o large fibroid tumor, benign History of sterilization procedure History of thyroidectomy Tobacco Smoking/Tobacco Use Status: Never Alcohol Alcohol Intake: never Substance Use Substance use: Never Substance use type: does not use Vital Signs and Lab Results Vital Signs Most Recent Vital Signs in EMR: Most Recent Vital Signs Temp Pulse Resp BP Pulse Ox 36.3 C L 68 16 138/63 97 02/07/21 09:44 02/07/21 09:44 02/07/21 09:44 02/07/21 09:44 02/07/21 09:44 Lab Results Blood Type / Crossmatch: No Data to Display Complete Blood Count: No Data to Display Complete Metabolic Panel: No Data to Display Liver Function Panel: No Data to Display Coagulation Panel: No Data to Display Cardiac Panel: No Data to Display Arterial Blood Gas: No Data to Display Venous Blood Gas: No Data to Display Pancreas Panel: No Data to Display Thyroid Panel: No Data to Display Infectious Disease: No Data to Display Blood Cultures: No Data to Display Toxicology Panel: No Data to Display Imaging and Studies Imaging and Studies EKG Summary: 02/07/21 Left BBB SR 72 Anesthesia Assessment and Plan Anesthesia History Personal History: No History of Anesthesia Complications Family History: No Family History of Anesthesia Complications Exercise Tolerance Exercise Tolerance: Metabolic Equivalents<4 Pertinent Negatives Pertinent Negatives: No Major Cardiovascular Symptoms or Complaints, No Major Pulmonary Symptoms or Complaints and No History of CVA/TIA Cardiac & Pulmonary Exam Cardiac Exam: Normal S1/S2 Heart Sounds Pulmonary Exam: Clear Bilateral Breath Sounds Airway Exam Known Difficult Airway: No Mallampati Class: 1 Mouth Opening: Normal (> 3cm) Thyromental Distance: Greater than 3 cm Neck Range of Motion: Full ROM Neck Circumference: Normal Teeth Condition: Normal Dentition Airway Comments: Top right crown ASA Classification ASA Score: ASA 2 Emergency Case?: No NPO Status NPO Status: NPO Clears >2 hours, Solids >8 hours Anesthesia Plan Resuscitation Status: Full Code Anesthesia Technique: General Anesthesia Airway Planned: Natural Airway Monitors Used: Standard Monitors
[2021-02-07 10:05] VITALS: BMI 23.3
[2021-02-07] MEDS: Lactated Ringers 1,000 ML 80 ML IV (10:11)
[2021-02-07 10:57] VITALS: BP 117/51; PULSE 63; RESP 20; TEMP 36.4; O2SAT 93
--- NOTE | 2021-02-07 11:11 | W.ANESPOSTOP ---
Postoperative Evaluation Date, Time and Location Date Performed: 02/07/21 Time Performed: 11:11 Patient Location: Day Surgery Unit Vital Signs Most Recent Imported Vital Signs: Most Recent Vital Signs Temp Pulse Resp BP Pulse Ox 36.4 C L 63 20 117/51 L 93 02/07/21 10:57 02/07/21 10:57 02/07/21 10:57 02/07/21 10:57 02/07/21 10:57 Pain Score Most Recent Pain Score: Most Recent Pain Score Pain Level 0 02/07/21 10:57 Assessment Mental Status: Awake (Alert & Oriented to Patient Baseline) Airway and Respiratory Function: Patent airway with normal (patient baseline) respiratory exam Cardiovascular Function: Hemodynamically Stable Hydration Status: Adequately Hydrated Nausea & Vomiting: No Nausea or Vomiting Pain: Pt. Denies Any Pain Peripheral Nerve Block: Patient did not receive a nerve block
[2021-02-07 11:32] VITALS: BP 143/64; PULSE 62; RESP 16; TEMP 36.3; O2SAT 96
== END 2021-02-07 12:00 | disposition home or self-care (01) ==
LOC: SUR 09:06
PROVIDERS: PCP Nurse Practitioner; Visit Provider Surgery
PROC: 0DJD8ZZ Inspection of Lower Intestinal Tract, Via Natural or Artificial Opening Endoscopic (ICD-10-PCS; CPT 45378; principal; 2021-02-07 09:45)
DX: Z12.11 Encounter for screening for malignant neoplasm of colon (principal); K57.32 Diverticulitis of large intestine without perforation or abscess without bleeding; K64.0 First degree hemorrhoids; Q43.8 Other specified congenital malformations of intestine; Z01.810 Encounter for preprocedural cardiovascular examination; I44.7 Left bundle-branch block, unspecified
CPT/HCPCS: G0121; 93005; 93010; J2001

== ENCOUNTER 2021-09-21 17:17 | Outpatient (REF) | payer MEDICARE, OTHER, SELFPAY ==
[2021-09-21 20:01] LABS: ALT 33 U/L (14-59); AST 25 U/L (15-37); Alkaline Phosphatase 88 U/L (46-116); Anion Gap 8.6 mmol/L (3-11); BUN 19 mg/dL (7-18); Bilirubin, Total 0.4 mg/dL (0.2-1.0); CO2 27.4 mmol/L (21.0-32.0); CREATININE 0.9 mg/dL (0.55-1.02); Calcium 9.1 mg/dL (8.5-10.1); Chloride 102 mmol/L (98-107); Glucose 96 mg/dL (74-106); Potassium 4.1 mmol/L (3.5-5.1); Sodium 138 mmol/L (136-145); TSH 0.99 uIU/mL (0.36-3.74); Total Protein 6.6 g/dL (6.4-8.2)
== END 2021-09-21 17:18 | disposition home or self-care (01) ==
LOC: NCHCN 17:17
PROVIDERS: PCP Nurse Practitioner; Visit Provider Nurse Practitioner Family
DX: I10 Essential (primary) hypertension (principal)
CPT/HCPCS: 80053; 84443

== ENCOUNTER 2022-07-28 14:49 | Emergency (ER) | payer MEDICARE, OTHER, SELFPAY ==
--- NOTE | 2022-07-28 13:36 | DI.CT_ITS ---
Exam(s) CT HEAD WO EXAM: CT HEAD WO CLINICAL HISTORY: fall, head trauma rt frontal. TECHNIQUE: Imaging Protocol: Axial computed tomography images with coronal and sagittal reformatted images were created and reviewed COMPARISON: CT CT HEAD WO from 05/22/2019 FINDINGS: Ventricles and Extra axial spaces: Normal in size and morphology for the patient's age. Hemorrhage: None. Cerebral parenchyma: Normal. Midline shift: None. Brainstem/Cerebellum: Normal. Calvarium: Normal. Visualized Paranasal sinuses/Mastoids: Clear. Soft Tissues: Small amount of air is seen in the scalp over the right frontal parietal region. IMPRESSION: No acute intracranial process. RADIATION DOSE DELIVERED: 729.71mGy.cm Total DLP DATA REPOSITORY: All CT scans at this facility are submitted to the National Radiology Data Registry (NRDR) Dose Index Registry (DIR) with the [employer] (ACR). RADIATION OPTIMIZATION: All CT scans at this facility use at least one of these dose optimization te chniques: automated exposure control; mA and/or kV adjustment per patient size (includes targeted exa ms where dose is matched to clinical indication); or iterative reconstruction.
[2022-07-28 14:52] VITALS: BP 158/67; PULSE 107; RESP 16; TEMP 36.6; O2SAT 97
--- NOTE | 2022-07-28 15:12 | ED.GENADUL_ITS ---
Discharge Plan Disposition Patient Disposition: Home Condition: Stable Discharge Details Clinical Impression: Scalp laceration, Fall Primary Care Provider: Gail Salvador ED Provider: Royce Lorenzo Home Meds and New Rx's Prescriptions: Continued acetaminophen 500 mg tablet 1,000 mg PO BID & HS tramadol 50 mg tablet 25 mg PO TID Rx Instructions: OK to take 1/2 tab BID. metoprolol tartrate 50 mg tablet 50 mg PO BID calcium carbonate-vitamin D3 [Calcium 500 + D] 1 EACH tablet 4 ea PO DAILY Label Comments: 04/24/16 Up to 4 [place] [facility] [place]or[place]Lipitor] 20 MG tablet 20 mg PO DAILY amlodipine 5 MG tablet 5 mg PO DAILY levothyroxine 88 MCG tablet 88 mcg PO DAILY hydrochlorothiazide 12.5 MG capsule 12.5 mg PO DAILY lisinopril 40 MG tablet 40 mg PO DAILY cholecalciferol (vitamin D3) [Vitamin D3] 2,000 UNIT capsule 2,000 unit PO DAILY gabapentin 100 mg capsule 100 mg PO BID Discharge Instructions Instructions: Fall Prevention for Older Adults (ED), Staple Care (ED) Additional Instructions: Please return for or see your primary care physician for staple removal in 12 days. Please contact your primary care physician to arrange follow-up. Return to the ER immediately for any worsening or new concerning symptoms. Referrals: Gail Salvador [Primary Care Provider] - Discharge Data Discharge Date/Time-TO BE ENTERED AT DEPARTURE: 07/28/22 16:16 Medical Decision Making 1525 -- 72-year-old female here with right frontal scalp laceration after losing her balance while bending over. No midline cervical tenderness with full range of motion. Patient does have some pain in the area where she struck and there is a bit of an indentation. Consider skull fracture acute intracranial traumatic hemorrhage. Plan to obtain CT of the head. Copious sterile saline irrigation was performed and topical anesthetic gel was applied. 1552??CT of the head was interpreted by radiology: No fracture, no bleeding. Wound was repaired by primary closure with marsha and without complication. Usual customary discharge instructions reviewed with the patient. HPI General Mode of arrival: ambulatory . Date/Time Provider Initiated Documentation: 07/28/22 15:01 . Limitations to Documentation: no limitations . Information obtained by: patient . HPI Narrative: 72-year-old female presents with chief complaint of head injury. Patient notes she was leaning over and turned around quickly and lost her balance and fell and struck her head. She not lose consciousness. She has pain in the area where she struck her head, right frontal. Patient notes she struck the right side of her head, sustained laceration and has had some bleeding. Bleeding stopped. No visual change, no numbness or tingling. No midline neck tenderness. She does note some mild discomfort right posterior neck over her muscle. Related Data Home Medications Medication Instructions Recorded Confirmed amlodipine 5 mg tablet 5 mg PO DAILY 04/24/16 07/28/22 atorvastatin 20 mg tablet (Lipitor) 20 mg PO DAILY 04/24/16 07/28/22 calcium carbonate 500 mg-vitamin 4 ea PO DAILY 04/24/16 07/28/22 D3 10 mcg (400 unit) tablet (Calcium 500 + D) cholecalciferol (vitamin D3) 50 2,000 unit PO DAILY 04/24/16 07/28/22 mcg (2,000 unit) capsule (Vitamin D3) hydrochlorothiazide 12.5 mg capsule 12.5 mg PO DAILY 04/24/16 07/28/22 levothyroxine 88 mcg tablet 88 mcg PO DAILY 04/24/16 07/28/22 lisinopril 40 mg tablet 40 mg PO DAILY 04/24/16 07/28/22 metoprolol tartrate 50 mg tablet 50 mg PO BID 10/26/20 07/28/22 tramadol 50 mg tablet 25 mg PO TID 10/26/20 07/28/22 acetaminophen 500 mg tablet 1,000 mg PO BID & HS daily 01/28/21 07/28/22 gabapentin 100 mg capsule 100 mg PO BID 07/28/22 07/28/22 Allergies Allergy/AdvReac Type Severity Reaction Status Date / Time iodine Allergy Severe Other (See Unverified 07/28/22 14:58 Comment) latex Allergy Mild Itching Unverified 07/28/22 14:58 Penicillins Allergy Mild Swelling/Ed Unverified 07/28/22 14:58 edson mold Allergy Unknown Anaphylaxis Unverified 07/28/22 14:58 General Stated Complaint: HeadInjury VONNIE: 3 Review of Systems Integumentary/Breasts Skin/Breast: Reports as per HPI Neurologic Neurologic: Reports as per HPI PFSH All Active Problems (Updated 07/28/22 @ 15:53 by Royce Lorenzo MD) Scalp laceration (Acute) Fall (Acute) Screening for colon cancer (Acute) Joint pain (Acute) Restless leg syndrome (Acute) Palpitations (Acute) Kyphoscoliosis (Acute) Medical History Enlarged heart enlarged heart, per pt. History of abnormal electrocardiogram Per pt. stated I just want to let you know that whenever you hook me up to the cardiac monitors my EKG will be all over the place, and I havent had an EKG in 10+ years *Pt. unable to specify what this meant further--will obtain EKG per anesthesia provider (JOÃO) on DOS. HTN (hypertension) Hx of hyperlipidemia Thyroid nodule Multiple, benign Surgical History History of cardiac cath History of colonoscopy (~01/2021) History of hysterectomy due to h/o large fibroid tumor, benign History of sterilization procedure History of thyroidectomy Social History Smoking/Tobacco Use Status: Never Smoking risk assessment performed?: Yes Alcohol Intake: never Drug use: Never Substance use type: does not use Do you feel safe at home: Yes Do you feel safe in your relationship?: Yes Exam Const General: cooperative and no acute distress HENMT Mouth: moist mucous membranes Eyes EOM: EOM intact bilaterally Neck Neck: trachea midline and supple Resp Auscultation: clear to auscultation bilaterally, no rales, no rhonchi and no wheezes Cardio Rate: regular rate and not tachycardic Rhythm: regular rhythm Back/Spine/Pelvis Cervical Spine: cervical muscular tenderness (rt), No cervical spinal tenderness and No step off deformity Skin General skin exam: no rashes or lesions noted Trauma: laceration (2cm scalp lac frontal rt) Neuro General: patient alert, patient awake, patient oriented x3 and tone normal Psych Appearance: grossly normal Mental Status: mental status grossly normal Speech and Movement: speech and movement normal Course Vital Signs Vital signs: Vital Signs Temperature 36.6 C 07/28/22 14:52 Pulse 107 H 07/28/22 14:52 Respiratory Rate 16 07/28/22 14:52 Blood Pressure 158/67 H 07/28/22 14:52 Pulse Oximetry 97 07/28/22 14:52 Temperature 36.6 C 07/28/22 14:52 Temperature Source Skin 07/28/22 14:52 Pulse 107 H 07/28/22 14:52 Respiratory Rate 16 07/28/22 14:52 Respiratory Effort 07/28/22 14:58 Blood Pressure 158/67 H 07/28/22 14:52 Blood Pressure Position Sitting 07/28/22 14:52 Pulse Oximetry 97 07/28/22 14:52 Oxygen Delivery Method Room Air 07/28/22 14:52 Oxygen Flow Rate 0 07/28/22 14:52 Pain Level 1 07/28/22 14:52 Procedures Laceration Laceration 1: Site: scalp Side (If applicable): right Size (cm): 2 Description: linear Depth: simple, single layer Local Anesthetic: other anesthetic (LET) Pre-repair: wound explored, irrigated extensively and deep structures intact Skin layer closed with: other (marsha #4)
[2022-07-28] MEDS: Lidocaine/Epinephri/Tetracaine Topical Gel 3 ML TP (15:15)
== END 2022-07-28 16:16 | disposition home or self-care (01) ==
PROVIDERS: Emergency Provider Student in an Organized Health Care Education/Training Program; PCP Nurse Practitioner
DX: S01.01XA Laceration without foreign body of scalp, initial encounter (principal); I10 Essential (primary) hypertension; Z23 Encounter for immunization; Z79.899 Other long term (current) drug therapy; W18.30XA Fall on same level, unspecified, initial encounter; W22.8XXA Striking against or struck by other objects, initial encounter
CPT/HCPCS: 90471; 99284; 70450; 99282

== ENCOUNTER 2022-08-01 01:38 | Outpatient (CLI) | payer MEDICARE, OTHER, SELFPAY ==
--- NOTE | 2022-08-01 | DI.MAMMO_ITS ---
Exam(s) MAMMO SCREENING EXAM: MAMMO SCREENING CLINICAL HISTORY: SCREENING,Z12.39 TECHNIQUE: Bilateral full field digital CC and MLO mammographic images were obtained with 3D tomosyn thesis and utilizing computer aided detection (CAD). COMPARISON: Available for comparison. FINDINGS: Masses/Architectural Distortion: None seen. Microcalcifications: No suspicious pleomorphic-type are seen. Skin Thickening/Nipple Retraction: None. IMPRESSION: 1. No significant interval change with no specific features of malignancy noted. 2. Unless there is more urgent need, screening mammography is recommended, as per [employer] guidelines. BI-RADS Category 1 - Negative Breast Density - Category B - Scattered areas of fibroglandular density Breast density category C or D implies that the patient has dense breast tissue. Dense breast tissue is very common and is not abnormal but dense breast tissue can make it harder to find cancer on a ma mmogram. Also, dense breast tissue may increase their breast cancer risk. This information about the result of the mammogram report was provided to the patient to raise their awareness. Use this report when you speak with the patient about their risks for breast cancer, which includes their family hist ory. At that time, you may recommend for more screening tests (Ultrasound or MRI) as they might be us eful based on their risk. A negative radiographic report should not delay biopsy if a dominant or clinically suspicious mass is present. Up to ten percent of cancers are not identified on mammography. A negative report may reinforce clinical impression. Adenosis and dense breasts may obscure an underlying neoplasm. False positive reports average 6 to 10%. Patient will receive a letter notifying them of these results.
== END 2022-08-01 01:58 ==
LOC: DI 01:39
PROVIDERS: PCP Nurse Practitioner; Visit Provider Nurse Practitioner Family
DX: Z12.31 Encounter for screening mammogram for malignant neoplasm of breast (principal)
CPT/HCPCS: 77063; 77067

== ENCOUNTER 2022-09-13 15:57 | Outpatient (REF) | payer MEDICARE, SELFPAY ==
[2022-09-13 15:42] LABS: HCT 38.2 % (36.0-46.0); HGB 12.2 g/dL (11.2-15.7); MCHC 31.9 % (32.0-36.0); MCV 91 fL (80-95); MPV 9.4 fL (8.0-11.0); Platelet Count 243 10^3/uL (130-400); RDW 13.1 % (11.7-14.6); RDW-SD 43.2 fL; WBC 6.18 10^3/uL (4.4-10.8)
[2022-09-13 16:07] LABS: ALT 26 U/L (14-59); AST 25 U/L (15-37); Albumin 3.7 g/dL (3.4-5.0); Alkaline Phosphatase 96 U/L (46-116); Anion Gap 5.7 mmol/L (3-11); BUN 18 mg/dL (7-18); Bilirubin, Total 0.5 mg/dL (0.2-1.0); CO2 28.3 mmol/L (21.0-32.0); CREATININE 0.9 mg/dL (0.55-1.02); Calcium 9.4 mg/dL (8.5-10.1); Calculated LDL 56 mg/dL (<100); Chloride 102 mmol/L (98-107); Cholesterol 149 mg/dL (<200); Estimated GFR 67.08 (mL/min/1.73m2); Glucose 99 mg/dL (74-106); HDL Cholesterol 77 mg/dL (40-60); Potassium 4.2 mmol/L (3.5-5.1); Sodium 136 mmol/L (136-145); TSH (W/Ref FT4) 0.51 uIU/mL (0.36-3.74); Total Protein 6.5 g/dL (6.4-8.2); Triglyceride 84 mg/dL (<150)
== END 2022-09-13 15:58 | disposition home or self-care (01) ==
LOC: NCHCN 15:57
PROVIDERS: PCP Nurse Practitioner Family; Visit Provider Nurse Practitioner Family
DX: I10 Essential (primary) hypertension (principal); E78.5 Hyperlipidemia, unspecified; E03.9 Hypothyroidism, unspecified; G25.81 Restless legs syndrome
CPT/HCPCS: 80053; 80061; 85027; 84443

== ENCOUNTER 2023-09-03 15:39 | Outpatient (REF) | payer MEDICARE, SELFPAY ==
[2023-09-03 19:05] LABS: HCT 40.9 % (36.0-46.0); HGB 13.1 g/dL (11.2-15.7); MCH 29.6 pg (27.0-33.0); MCV 92 fL (80-95); MPV 9.3 fL (8.0-11.0); Platelet Count 230 10^3/uL (130-400); RBC 4.43 10^6/uL (3.93-5.22); RDW 12.8 % (11.7-14.6); RDW-SD 43.7 fL; WBC 6.88 10^3/uL (4.4-10.8)
[2023-09-03 19:41] LABS: ALT 25 U/L (14-59); AST 31 U/L (15-37); Albumin 3.9 g/dL (3.4-5.0); Alkaline Phosphatase 98 U/L (46-116); Anion Gap 10.3 mmol/L (3-11); BUN 24 mg/dL (7-18); Bilirubin, Total 0.4 mg/dL (0.2-1.0); CO2 26.7 mmol/L (21.0-32.0); CREATININE 0.9 mg/dL (0.55-1.02); Calcium 9.5 mg/dL (8.5-10.1); Chloride 102 mmol/L (98-107); Estimated GFR 66.67 (mL/min/1.73m2); Glucose 100 mg/dL (74-106); Potassium 4.2 mmol/L (3.5-5.1); Sodium 139 mmol/L (136-145); TSH (W/Ref FT4) 1.36 uIU/mL (0.36-3.74); Total Protein 6.9 g/dL (6.4-8.2)
== END 2023-09-03 15:40 | disposition home or self-care (01) ==
LOC: NCHCN 15:39
PROVIDERS: PCP Nurse Practitioner Family; Visit Provider Nurse Practitioner Family
DX: E03.9 Hypothyroidism, unspecified (principal); R06.09 Other forms of dyspnea
CPT/HCPCS: 80053; 85027; 84443

== ENCOUNTER → 2023-09-10 00:59 | Outpatient (CLI) | payer MEDICARE, SELFPAY ==
--- NOTE | 2023-09-10 | DI.NM_ITS ---
APPROVED REPORT Exam: Pharmacologic Patient Location: Out-Patient Room/Bed: Stress Nurse: Bela Brown RN Ordering Provider:MICHELLE RAMOS, Contact Number: [phone] BMI: 26.07 Baseline Rhythm: Sinus Rhythm Comment: Left BBB Indications: Other forms of dyspnea, Chest pain Medical History Medical History: HLD, HTN, hypothyroidism, DJD, RLS, Kyphoscoliosis Cardiac Medications: Amlodipine, Atorvastatin, HCTZ, Metoprolol Tartrate, Lisinopril, Gabapentin, Lev othyroxine Allergies: Iodine, Latex, Penicillins, mold Cardiac Risk Factors: +family history, +HTN, +HLD Previous Cardiac Procedures: Cardiac cath Pretest Chest Pain Characteristics: None Exercise History: Indeterminate Physical Disabilities: Scoliosis Lung Sounds: Lungs dimiinished, clear Heart Sounds: Regular Stress Test Details Test: Pharmacologic stress testing performed using 0.4 mg of regadenoson per 5 mL given IV over 10 s econds. Reason for pharmacologic stress test: LBBB. Nuclear Acquisition: Rest Tc-99m/Stress Tc-99m 1 day Rest Isotope: Tc-99m Sestamibi. Dose: 10 Date: 09/10/2023 Injection Time: 08:45 Stress Isotope: Tc-99m Sestamibi. Dose: 30 Date: 09/10/2023 Injection Time: 10:05 HR Resting HR Supine: 64 bpm Max Heart Rate (APMHR): 145.307441 bpm Target HR (85% APMHR): 123.111695 bpm Max HR Achieved: 92 bpm % of APMHR: 63.45 Recovery HR: 75 bpm BP Resting BP Supine: 158/70 mmHg Max BP: 162/74 mmHg Recovery BP: 150/58 mmHg ECG Resting ECG: Sinus Rhythm, LBBB Ectopy: None Stress ECG: Sinus Rhythm, LBBB ST Change: None Arrhythmia: None Recovery ECG: Sinus Rhythm, LBBB Recovery ST Change: None Recovery Arrhythmia: None Clinical Stress Symptoms: Brief shortness of breath Angina Score: None Rate Pressure Product: 18328 Stress ECG Conclusion 1. Resting echocardiogram showed a left bundle branch block. 2. Patient underwent testing using pharmacologic stress with regadenoson 3. Peak heart rate achieved was 63% of predicted for age 4. Electrocardiographic portion of the test was nondiagnostic 5. See MPI report Stress Test Summary STAGE HR BP SpO2 Symptoms NOTES Supine 64 158/70 1 min post Lexiscan injection 85 162/74 brief shortness of breath 3 min post Lexiscan injection 86 160/64 6 min post Lexiscan injection 75 150/58 MPI Conclusion Myocardial perfusion is normal. There is no ischemia or evidence of prior infarction EF is 42% Wall motion is grossly normal Radiologist Interpretation Radiologist Interpretation by: Isai Henriquez MD Interpretation Date/Time: 09/10/2023 16:57:00
--- NOTE | 2023-09-10 09:02 | DI.RAD_ITS ---
Exam(s) XR CHEST 2V PA LATERAL EXAM: XR CHEST 2V PA LATERAL CLINICAL HISTORY: R06.09 other forms of dyspnea,R07.9 Chest pain TECHNIQUE: 2D digital imaging was performed of the chest. Two images were obtained. PA and lateral views were obtained. COMPARISON: CR XR CHEST 2V PA LATERAL from 05/22/2019 FINDINGS: MEDIASTINUM: Normal. HEART: Normal. PULMONARY VASCULATURE: There is tortuosity of the thoracic aorta. LUNGS: Clear. PLEURAL SPACE: No pleural effusion or pneumothorax. BONE:Within normal limits for the patient's age. There is again seen a right convex lower thoracic a nd upper lumbar scoliosis. Stable anterior wedging of mid of lower thoracic and upper lumbar vertebr al bodies is seen. OTHER FINDINGS:There is elevation of the left hemidiaphragm. IMPRESSION: No acute pulmonary findings. DATA REPOSITORY: RADIATION DOSE DELIVERED:
[2023-09-10] MEDS: Regadenoson 0.4 MG/5 ML SYR IVP (10:00)
== END ==
PROVIDERS: PCP Nurse Practitioner Family; Visit Provider Nurse Practitioner Family
DX: R06.09 Other forms of dyspnea (principal)
CPT/HCPCS: 78452; 93016; 93018; 71046; 93017; J2785

== ENCOUNTER → 2023-09-17 13:14 | Outpatient (BNVA) | payer MEDICARE, SELFPAY | PROVIDERS: PCP Nurse Practitioner Family; Referring Provider Nurse Practitioner Family; Visit Provider Podiatrist | DX: B35.1 Tinea unguium (principal); L60.3 Nail dystrophy; I70.203 Unspecified atherosclerosis of native arteries of extremities, bilateral legs | CPT/HCPCS: 11721; 99213 ==

== ENCOUNTER → 2023-09-21 00:27 | Outpatient (CLI) | payer MEDICARE, SELFPAY ==
--- NOTE | 2023-09-21 | DI.US_ITS ---
APPROVED REPORT EXAM: Comprehensive 2D, Doppler, and color-flow Echocardiogram Patient Location: Out-Patient [employer] Worker: Clari Jameson RDCS (AE) Indications: Dyspne on exertion, Chest pain, h/o abnormal stress test Other Information Study Quality: Adequate. Technically limited study due to body habitus parasternal imaging was limite d.. Conclusion Normal left ventricular wall thickness and chamber size. Moderate left ventricular dysfunction with an ejection fraction of 40%. There are wall motion abnormalities involving the anterior and anteroap ical segments Normal right ventricular size and function Moderately dilated left atrium Sclerotic aortic valve with trace to mild regurgitation Normal mitral valve with trace to mild regurgitation Estimated right ventricular systolic pressure is 25 mm Hg Wall motion Left Ventricle Technically limited parasternal imaging. Left ventricular systolic function is moderately decreased. Regional wall motion abnormalities are noted. Septal and anterolateral wma There is no ventricular se ptal defect visualized. LVEF is 41%. Right Ventricle The right ventricle is normal size. The right ventricular systolic function is normal. Atria Left atrium is moderately dilated. The right atrium size is normal. The interatrial septum is intact with no evidence for an atrial septal defect. Aortic Valve The Aortic valve is sclerotic. There is no aortic valvular stenosis. Trace to mild aortic regurgitat ion. Mitral Valve The mitral valve is normal in structure. No evidence of mitral valve stenosis. Trace to mild mitral r egurgitation. Tricuspid Valve The tricuspid valve is normal in structure. There is no tricuspid valve stenosis. Trace tricuspid reg urgitation. The RVSP is 24.7mmHg. Pulmonic Valve The pulmonary valve is normal in structure. There is no pulmonic valvular stenosis. Trace pulmonic re gurgitation. Great Vessels The aortic root is normal in size. Ascending aorta is not well visualized. Aortic arch is normal in c aliber. IVC is normal in size and collapses >50% with inspiration. Pericardium There is no pericardial effusion. 2D Dimensions Ao Root d 3.00 cm F: 2.7 - 3.3 M-Mode TAPSE 2.35 cm (M/F) >1.7 Auto EF LV EDV A4C 119.2 mL LV EDV A2C 112.3 mL LV EDV BP 117.4 mL LV ESV A4C 74.4 mL LV ESV A2C 66.8 mL LV ESV BP 69.8 mL LVEF(%) A4C 37.5 % LVEF(%) A2C 40.5 % LVEF(%) BP 40.5 % LV SV A4C 44.7 ml LV SV A2C 45.5 ml LV SV BP 47.6 ml LV CO A4C 2.7 L/min LV CO A2C 2.8 L/min LV CO BP 2.7 L/min HR A4C 60.41 BPM HR A2C 60.81 BPM LV EDV Index (BP) LV Strain Long Pk Overal Avg (s) 14.63 LA Volume LA Length A4C 5.5 cm LA Length A2C 6.3 cm LA Area A4C s 22.42 cm2 LA Area A2C s 25.23 cm2 LA Vol A4C A-L 77.11 mL LA Vol A2C A-L 85.69 mL LA Vol Biplane A-L 86.8 mL LA Vol/BSA A4C A-L LA Vol/BSA A2C A-L LA Vol/BSA BP A-L 53.9 mL/m2 LA Vol A4C MOD 72.2 mL LA Vol A2C MOD 81.9 mL LA Vol BP MOD 81.8 mL RA Volume RA Area A4C 13.0 cm2 RA ESV A4C (A-L) 30.5mL RA Vol/BSA A4C A-L RA Length A4C 4.7 cm RA ESV A4C (MOD) 28.0mL LV Diastology MV E' medial 0.053 (>0.07 m/s) MV E Vmax 0.79 (0.4-1.3 m/s) MV E/E' MED 14.99 (<14) MV A Vmax 0.75 (0.4-1.3 m/s) MV E' lateral 0.076 (>0.1 m/s) E/A Ratio 1.1 MV E/E' LAT 10.40 (<14) MV E' Average 0.064 m/s MV E/E'(average) 12.28 Aortic Valve AoV Vmax 1.33 m/s LVOT Vmax 1.04 m/s AoV Peak Grad 35.6 mmHg LVOT Peak Grad 4.3 mmHg AoV Area (Vmax) 2.57 cm2 LVOT VTI 0.245 m AoV VTI 0.303 m LVOT Mean Grad 2.4 mmHg AoV Mean [place]. 0.89 m/s LVOT SV 80.42 mL AoV Mean Grad 3.7 mmHg LVOT Diam s 2.00 cm AoV Area (VTI) 2.66 cm2 AV Regurg Peak Gr. 64.25 mmHg Velocity Ratio 0.78 AR Decel [place] 3.1m/sec2 AR DT 1294 msec AR PHT 375 msec AR Vmax 4.01 m/s Mitral Valve MV DT 160 (160-240 msec) MV Vmax TIPS 0.82 m/s MV Mean Grad 1.6 (<2mmHg) MV VTI 0.323 m Pulmonary Valve PV Vmax 0.81 (0.5-1.5 m/s) RVOT Vmax 0.59 m/s PV Peak Grad 2.6 mmHg RVOT Peak Gr. 1.4 mmHg PV Mean [place] 0.56 m/s RVOT VTI 0.155 m PV Mean Grad 1.5 mmHg RVOT Mean Gr. 0.9 mmHg Tricuspid Valve RA Pressure 3.00 mmHg TR Vmax 2.33 m/s TR Peak Grad 21.7 mmHg RVSP (TR) 24.7 mmHg
== END ==
PROVIDERS: PCP Nurse Practitioner Family; Visit Provider Nurse Practitioner Family
DX: R07.9 Chest pain, unspecified (principal)
CPT/HCPCS: 93306

== ENCOUNTER 2023-09-24 07:47 | Outpatient (CLI) | payer MEDICARE, SELFPAY ==
--- NOTE | 2023-09-24 07:45 | RT.EKG_ITS ---
APPROVED REPORT Exam: Resting ECG Reason for Exam: chest pain Patient Location: O HR:77 bpm ECG Measurements Heart Rate 77 AXIS MN 181 P 38 QRSd 168 QRS 9 QT 413 T 184 QTc 468 Conclusion Sinus rhythm...normal P axis, V-rate 50- 99 Left bundle branch block...QRSd>120, broad/notched R Baseline wander in lead(s) II,III,aVR,aVL,aVF,V1,V2,V3,V4,V5
== END 2023-09-24 07:48 | disposition home or self-care (01) ==
LOC: DI.CARD 07:47
PROVIDERS: PCP Nurse Practitioner Family; Visit Provider Internal Medicine Cardiovascular Disease
DX: R00.2 Palpitations (principal); R07.9 Chest pain, unspecified
CPT/HCPCS: 93010

== ENCOUNTER → 2023-09-24 13:36 | Outpatient (BNVA) | payer MEDICARE, SELFPAY | PROVIDERS: PCP Nurse Practitioner Family; Referring Provider Nurse Practitioner Family; Visit Provider Internal Medicine Cardiovascular Disease | DX: I44.7 Left bundle-branch block, unspecified (principal); I42.9 Cardiomyopathy, unspecified; R00.2 Palpitations; R07.9 Chest pain, unspecified | CPT/HCPCS: 93005; 99214 ==

== ENCOUNTER → 2023-11-02 08:54 | Outpatient (BNVA) | payer MEDICARE, SELFPAY | PROVIDERS: PCP Nurse Practitioner Family; Referring Provider Nurse Practitioner Family; Visit Provider Physical Therapy Assistant | DX: I73.9 Peripheral vascular disease, unspecified (principal) | CPT/HCPCS: 93922 ==

== ENCOUNTER 2023-12-21 10:24 | Day surgery (SDC) | payer MEDICARE, SELFPAY ==
--- NOTE | 2023-12-21 09:42 | ANES.PREOP_ITS ---
General Info Date of Service Date Performed: 12/21/23 Height: 5 ft 1.5 in Weight: 63.957 kg Body Mass Index (BMI): 26.2 Surgical Procedure: Operation Date: 12/21/23 13:40 Proposed Procedure Side Surgeon p Cataract Extraction with IOL Implant Right Skyler Zepeda MD Meds Allergies and Home Medications Allergies Allergy/AdvReac Type Severity Reaction Status Date / Time iodine Allergy Severe Per pt. Verified 12/21/23 11:48 slough right off and itch latex Allergy Mild Itching Verified 12/21/23 11:48 Penicillins Allergy Mild Swelling/Ed Verified 12/21/23 11:48 edsno mold Allergy Unknown Anaphylaxis Verified 12/21/23 11:48 Home Medication Medication Instructions Recorded amlodipine 5 mg tablet 5 mg PO DAILY 04/24/16 atorvastatin 20 mg tablet (Lipitor) 20 mg PO DAILY 04/24/16 calcium carbonate 500 mg-vitamin 4 ea PO DAILY 04/24/16 D3 10 mcg (400 unit) tablet (Calcium 500 + D) cholecalciferol (vitamin D3) 50 2,000 unit PO DAILY 04/24/16 mcg (2,000 unit) capsule (Vitamin D3) hydrochlorothiazide 12.5 mg capsule 12.5 mg PO DAILY 04/24/16 levothyroxine 88 mcg tablet 88 mcg PO DAILY 04/24/16 lisinopril 40 mg tablet 40 mg PO DAILY 04/24/16 metoprolol tartrate 50 mg tablet 50 mg PO BID 10/26/20 tramadol 50 mg tablet 25 mg PO TID 10/26/20 acetaminophen 500 mg tablet 1,000 mg PO BID & HS daily 01/28/21 gabapentin 100 mg capsule 100 mg PO BID 07/28/22 ketoconazole 2 % topical cream 1 applic topical DAILY #120 grams 09/17/23 naloxone 4 mg/actuation nasal spray 4 mg intranasal Q3M PRN 09/17/23 Current Visit Medications: Current Medications Generic Name Dose Route Start Last Admin Trade Name Freq PRN Reason Stop Dose Admin Acetaminophen 1,000 mg 12/21/23 06:00 Acetaminophen 500 Mg Tab PO 01/20/24 05:59 Q4H PRN PRN Balanced Salt Solution 500 ml 12/21/23 06:00 Balanced Salt Soln.-Plus 500 Ml Bag OP 01/20/24 05:59 DIRECTED [facility] Miscellaneous Medication 0 ml 12/21/23 06:00 Prednisolone 1%, Moxifloxacin 0.5%, Bromfenac 0.09% 5ml Btl OD 01/20/24 05:59 DIRECTED [facility] Miscellaneous Medication 0 ml 12/21/23 06:00 Tropicam./Phenyleph. (1/2.5%) 10 Ml Btl OD 01/20/24 05:59 DIRECTED [facility] Tetracaine HCl 0 ml 12/21/23 06:00 Tetracaine 0.5% 4 Ml Btl OD 01/20/24 05:59 DIRECTED [facility] PFSH Active Problems Active Problems: Problem Status Onset Code Posterior subcapsular age-related cataract, right eye H25.041 Cortical age-related cataract, right eye H25.011 Nuclear age-related cataract, right eye H25.11 Cardiomyopathy I42.9 Left bundle branch block I44.7 Atherosclerosis of artery of both lower extremities I70.203 Nail dystrophy L60.3 Onychomycosis B35.1 Liver disease K76.9 Dyspnea on exertion R06.09 Sacroiliitis M46.1 Degenerative joint disease M19.90 Hypothyroidism E03.9 Kyphoscoliosis M41.9 Palpitations R00.2 Restless leg syndrome G25.81 Joint pain M25.50 Hx of hyperlipidemia Z86.39 HTN (hypertension) I10 Medical History Medical History Liver lesion Screening for colon cancer Enlarged heart enlarged heart, per pt. Per pt. f/u with PCP, not required to see library supervisor per History of abnormal electrocardiogram Per pt. stated I just want to let you know that whenever you hook me up to the cardiac monitors my EKG will be all over the place, and I havent had an EKG in 10+ years *Pt. unable to specify what this meant further--will obtain EKG per anesthesia provider (JOÃO) on DOS. Thyroid nodule Multiple, benign Medical History Comments:: LBBB Documented in 2005 Surgical History Surgical History History of colonoscopy (~01/2021) History of cardiac cath 2003 History of sterilization procedure History of hysterectomy due to h/o large fibroid tumor, benign History of thyroidectomy Tobacco Smoking/Tobacco Use Status: Never Alcohol Alcohol Intake: never Substance Use Substance use: Never Substance use type: does not use Vital Signs and Lab Results Lab Results Blood Type / Crossmatch: No Data to Display Complete Blood Count: No Data to Display Complete Metabolic Panel: No Data to Display Liver Function Panel: No Data to Display Coagulation Panel: No Data to Display Cardiac Panel: No Data to Display Arterial Blood Gas: No Data to Display Venous Blood Gas: No Data to Display Pancreas Panel: No Data to Display Thyroid Panel: No Data to Display Infectious Disease: No Data to Display Blood Cultures: No Data to Display Toxicology Panel: No Data to Display Imaging and Studies Imaging and Studies Study information below may be from another EMR and interpreted by another provider. Please see original notes in EMR for more complete details. EKG Summary: EKG PATIENT NAME: Nicolasa Deshpande UNIT #: [id number] ORDERING PROVIDER: Zach Milner M.D. PRIMARY CARE PROVIDER: MICHELLE RAMOS NP DATE/TIME OF SERVICE: 09/24/23 1352 : 1950 PERFORMING LOCATION: [facility] APPROVED REPORT Exam: Resting ECG Reason for Exam: chest pain Patient Location: O HR:77 bpm ECG Measurements Heart Rate 77 AXIS IA 181 P 38 QRSd 168 QRS 9 QT 413 T184 QTc 468 Conclusion Sinus rhythm...normal P axis, V-rate 50- 99 Left bundle branch block...QRSd>120, broad/notched R Baseline wander in lead(s) II,III,aVR,aVL,aVF,V1,V2,V3,V4,V5 <Electronically signed by ZACH MILNER MD in OV> E-Sign Date: 09/24/23 E-Sign Time: 1408 Stress Test Summary: Patient Name: Nicolasa Deshpande Unit #: [id number] Loc: Ordering Provider: MICHELLE RAMOS [employer]ORCYCLE SUB[employer]SEMBLY REPAIRER Status: REG I Primary Care Provider: MICHELLE RAMOS MOTORCYCLE SUBASSEMBLY REPAIRER Date of Exam: 09/10/23 Sex: F Admission Date: 09/10/23 : 1950 Age: 73 APPROVED REPORT Exam: Pharmacologic Patient Location: Out-Patient Room/Bed: Stress Nurse: Bela Brown RN Ordering Provider:MICHELLE RAMOS, Contact Number: [phone] BMI: 26.07 Baseline Rhythm: Sinus Rhythm Comment: Left BBB Indications: Other forms of dyspnea, Chest pain Medical History Medical History: HLD, HTN, hypothyroidism, DJD, RLS, Kyphoscoliosis Cardiac Medications: Amlodipine, Atorvastatin, HCTZ, Metoprolol Tartrate, Lisinopril, Gabapentin, Levothyroxine Allergies: Iodine, Latex, Penicillins, mold Cardiac Risk Factors: +family history, +HTN, +HLD Previous Cardiac Procedures: Cardiac cath Pretest Chest Pain Characteristics: None Exercise History: Indeterminate Physical Disabilities: Scoliosis Lung Sounds: Lungs dimiinished, clear Heart Sounds: Regular Stress Test Details Test: Pharmacologic stress testing performed using 0.4 mg of regadenoson per 5 mL given IV over 10 seconds. Reason for pharmacologic stress test: LBBB. Nuclear Acquisition: Rest Tc-99m/Stress Tc-99m 1 day Rest Isotope: Tc-99m Sestamibi. Dose: 10 Date: 09/10/2023 Injection Time: 08:45 Stress Isotope: Tc-99m Sestamibi. Dose: 30 Date: 09/10/2023 Injection Time: 10:05 HR Resting HR Supine: 64 bpmMax Heart Rate (APMHR): 145.807160 bpm Target HR (85% APMHR): 123.188322 bpm Max HR Achieved: 92 bpm % of APMHR: 63.45 Recovery HR: 75 bpm BP Resting BP Supine: 158/70 mmHg Max BP: 162/74 mmHg Recovery BP: 150/58 mmHg ECG Resting ECG: Sinus Rhythm, LBBB Ectopy: None Stress ECG: Sinus Rhythm, LBBB ST Change: None Arrhythmia: None Recovery ECG: Sinus Rhythm, LBBB Recovery ST Change: None Recovery Arrhythmia: None Clinical Stress Symptoms: Brief shortness of breath Angina Score: None Rate Pressure Product: 39997 Stress ECG Conclusion 1. Resting echocardiogram showed a left bundle branch block. 2. Patient underwent testing using pharmacologic stress with regadenoson 3. Peak heart rate achieved was 63% of predicted for age 4. Electrocardiographic portion of the test was nondiagnostic 5. See MPI report Stress Test Summary [id number] [id number]/70 1 min post Lexiscan deqttesji76333/74brief shortness of breath 3 min post Lexiscan vnbizuvrg93348/64 6 min post Lexiscan mnmpbkxpj46019/58 MPI Conclusion Myocardial perfusion is normal. There is no ischemia or evidence of prior infarction EF is 42% Wall motion is grossly normal Radiologist Interpretation Radiologist Interpretation by: Isai Henriquez MD Interpretation Date/Time: 09/10/2023 16:57:00 Ordered By: MICHELLE RAMOS NP CC: Dictated By: Zach Milner M.D. 09/10/23 1025 <Electronically signed by Zach Milner M.D. in OV> 09/11/23 0805 Transcribed By: Zach Milner MD 09/10/23 1025 This is privileged, confidential information intended only for the provider named. Any use or distribution by any person other than this provider is strictly prohibited. If you receive this report in error, please notify us immediately at [phone] and return the original report to us at the address above. Thank-you. Echocardiogram Summary: atient Name: Nicolasa Deshpande Unit #: [id number] Loc: DI Ordering Provider: MICHELLE RAMOS NP Status: [facility] Primary Care Provider: MICHELLE RAMOS NP Date of Exam: 09/21/23 Sex: F Admission Date: 09/21/23 : 1950 Age: 73 APPROVED REPORT EXAM: Comprehensive 2D, Doppler, and color-flow Echocardiogram Patient Location: Out-Patient Any Commodity Buyer: Clari Jameson RDCS (AE) Indications: Dyspne on exertion, Chest pain, h/o abnormal stress test Other Information Study Quality: Adequate. Technically limited study due to body habitus parasternal imaging was limited.. Conclusion Normal left ventricular wall thickness and chamber size. Moderate left ventricular dysfunction with an ejection fraction of 40%. There are wall motion abnormalities involving the anterior and anteroapical segments Normal right ventricular size and function Moderately dilated left atrium Sclerotic aortic valve with trace to mild regurgitation Normal mitral valve with trace to mild regurgitation Estimated right ventricular systolic pressure is 25 mm Hg Wall motion Left Ventricle Technically limited parasternal imaging. Left ventricular systolic function is moderately decreased. Regional wall motion abnormalities are noted. Septal and anterolateral wma There is no ventricular septal defect visualized. LVEF is 41%. Right Ventricle The right ventricle is normal size. The right ventricular systolic function is normal. Atria Left atrium is moderately dilated. The right atrium size is normal. The interatrial septum is intact with no evidence for an atrial septal defect. Aortic Valve The Aortic valve is sclerotic. There is no aortic valvular stenosis. Trace to mild aortic regurgitation. Mitral Valve The mitral valve is normal in structure. No evidence of mitral valve stenosis. Trace to mild mitral regurgitation. Tricuspid Valve The tricuspid valve is normal in structure. There is no tricuspid valve stenosis. Trace tricuspid regurgitation. The RVSP is 24.7mmHg. Pulmonic Valve The pulmonary valve is normal in structure. There is no pulmonic valvular stenosis. Trace pulmonic regurgitation. Great Vessels The aortic root is normal in size. Ascending aorta is not well visualized. Aortic arch is normal in caliber. IVC is normal in size and collapses >50% with inspiration. Pericardium There is no pericardial effusion. 2D Dimensions Ao Root d 3.00 cm F: 2.7 - 3.3 M-Mode TAPSE 2.35 cm (M/F) >1.7 Auto EF LV EDV X5K560.2 mLLV EDV Q8E546.3 mLLV EDV BP117.4 mL LV ESV A4C74.4 mLLV ESV A2C66.8 mLLV ESV BP69.8 mL LVEF(%) A4C37.5 %LVEF(%) A2C40.5 %LVEF(%) BP40.5 % LV SV A4C44.7 mlLV SV A2C45.5 mlLV SV BP47.6 ml LV CO A4C2.7 L/minLV CO A2C2.8 L/minLV CO BP2.7 L/min HR A4C60.41 BPMHR A2C60.81 BPMLV EDV Index (BP) LV Strain Long Pk Overal Avg (s) 14.63 LA Volume LA Length A4C5.5 cmLA Length A2C6.3 cm LA Area A4C s 22.42 cm2LA Area A2C s 25.23 cm2 LA Vol A4C A-L77.11 mLLA Vol A2C A-L85.69 mLLA Vol Biplane A-L86.8 mL LA Vol/BSA A4C A-LLA Vol/BSA A2C A-LLA Vol/BSA BP A-L 53.9 mL/m2 LA Vol A4C MOD72.2 mLLA Vol A2C MOD81.9 mLLA Vol BP MOD81.8 mL RA Volume RA Area A4C13.0 cm2RA ESV A4C (A-L)30.5mLRA Vol/BSA A4C A-L RA Length A4C4.7 cmRA ESV A4C (MOD)28.0mL LV Diastology MV E' medial0.053 (>0.07 m/s)MV E Vmax 0.79 (0.4-1.3 m/s) MV E/E' MED14.99 (<14)MV A Vmax 0.75 (0.4-1.3 m/s) MV E' lateral0.076 (>0.1 m/s)E/A Ratio 1.1 MV E/E' LAT10.40 (<14) MV E' Average0.064 m/s MV E/E'(average)12.28 Aortic Valve AoV Vmax1.33 m/sLVOT Vmax 1.04 m/s AoV Peak Grad35.6 mmHgLVOT Peak Grad 4.3 mmHg AoV Area (Vmax)2.57 rw3MLDT VTI0.245 m AoV VTI0.303 mLVOT Mean Grad 2.4 mmHg AoV Mean Tigre.0.89 m/sLVOT SV 80.42 mL AoV Mean Grad3.7 mmHgLVOT Diam s 2.00 cm AoV Area (VTI)2.66 cm2AV Regurg Peak Gr.64.25 mmHg Velocity Ratio 0.78 AR Decel Slope3.1m/sec2 AR DT 1294 msec AR PHT 375 msec AR Vmax 4.01 m/s Mitral Valve MV DT 160 (160-240 msec) MV Vmax TIPS 0.82 m/s MV Mean Grad 1.6 (<2mmHg) MV VTI 0.323 m Pulmonary Valve PV Vmax 0.81 (0.5-1.5 m/s)RVOT Vmax 0.59 m/s PV Peak Grad 2.6 mmHgRVOT Peak Gr.1.4 mmHg PV Mean Vel0.56 m/sRVOT VTI0.155 m PV Mean Grad 1.5 mmHgRVOT Mean Gr.0.9 mmHg Tricuspid Valve RA Pressure 3.00 mmHgTR Vmax 2.33 m/s TR Peak Grad 21.7 mmHg RVSP (TR) 24.7 mmHg Ordered By: MICHELLE RAMOS NP CC: Dictated By: Zach Milner M.D. 09/21/23 1011 <Electronically signed by Zach Milner M.D. in OV> 09/21/23 1104 Transcribed By: Zach Milner MD 09/21/23 1011 This is privileged, confidential information intended only for the provider named. Any use or distribution by any person other than this provider is strictly prohibited. If you receive this report in error, please notify us immediately at [phone] and return the original report to us at the address above. Thank-you. Anesthesia Assessment and Plan Anesthesia History Personal History: No History of Anesthesia Complications Family History: No Family History of Anesthesia Complications Exercise Tolerance Exercise Tolerance: Metabolic Equivalents<4 Pertinent Negatives Pertinent Negatives: No Symptoms of GERD Cardiac & Pulmonary Exam Cardiac Exam: Normal S1/S2 Heart Sounds Pulmonary Exam: Clear Bilateral Breath Sounds Implantable Cardiac Device Does patient have a Pacemaker or an ICD?: No Airway Exam Known Difficult Airway: No Mallampati Class: 1 Mouth Opening: Normal (> 3cm) Thyromental Distance: Greater than 3 cm Neck Range of Motion: Full ROM Neck Circumference: Normal Teeth Condition: Normal Dentition Airway Comments: Top right crown ASA Classification ASA Score: ASA 3 Emergency Case?: No NPO Status NPO Status: NPO Clears >2 hours, Solids >8 hours Anesthesia Plan Resuscitation Status: Full Code Anesthesia Technique: MAC Anesthesia Airway Planned: Natural Airway Monitors Used: Standard Monitors
[2023-12-21 11:00] VITALS: BP 148/90; PULSE 64; RESP 16; TEMP 36.3; O2SAT 16
[2023-12-21] MEDS: Tetracaine 0.5% 4 ML BTL OD (12:28)
[2023-12-21] MEDS: Povidone-Iodine Ophth 30 ML BTL (12:28)
[2023-12-21 12:34] VITALS: BMI 26.2
[2023-12-21] MEDS: Balanced Salt Soln.-PLUS 500 ML BAG OP (12:35)
[2023-12-21] MEDS: Lidocaine 1% Pres-Free 5 ML VIAL (12:35)
[2023-12-21] MEDS: Duovisc Viscoelastic System EACH 1 EACH (12:35)
[2023-12-21 12:56] VITALS: BP 151/59; PULSE 68; RESP 16; TEMP 36.4; O2SAT 97
--- NOTE | 2023-12-21 12:57 | W.PM.DSUDISC ---
Date of service: 12/21/23 Time of Service: 12:57 Discharge Plan Disposition Patient Disposition: Home Discharge Details Attending Provider: Skyler Zepeda Primary Care Provider: MICHELLE RAMOS Home Meds and New Rx's Prescriptions: No Action acetaminophen 500 mg tablet 1,000 mg PO BID & HS naloxone 4 mg/actuation spray,non-aerosol 4 mg intranasal Q3M PRN Rx Instructions: spray 1 dose into ONE nostril; alternate nostrils w each dose until help arrives ketoconazole 2 % cream 1 applic topical DAILY Qty: 120 6RF Rx Instructions: Apply to toenails once daily tramadol 50 mg tablet 25 mg PO TID Rx Instructions: OK to take 1/2 tab BID. metoprolol tartrate 50 mg tablet 50 mg PO BID calcium carbonate-vitamin D3 [Calcium 500 + D] 1 EACH tablet 4 ea PO DAILY Patient Comments: 04/24/16 Up to 4 daily. [facility] atorvastatin [Lipitor] 20 MG tablet 20 mg PO DAILY amlodipine 5 MG tablet 5 mg PO DAILY levothyroxine 88 MCG tablet 88 mcg PO DAILY hydrochlorothiazide 12.5 MG capsule 12.5 mg PO DAILY lisinopril 40 MG tablet 40 mg PO DAILY cholecalciferol (vitamin D3) [Vitamin D3] 2,000 UNIT capsule 2,000 unit PO DAILY gabapentin 100 mg capsule 100 mg PO BID Discharge Instructions Stand Alone Forms: DSU Post-Op CataractMarybel (DSU) Discharge Orders Discharge Orders: Discharge Order (Routine); Ordered 12/21/23 Ordered By: Skyler Zepeda DS: Diagnosis Discharge Diagnosis (1) Posterior subcapsular age-related cataract, right eye: Status: Resolved (2) Cortical age-related cataract, right eye: Status: Resolved (3) Nuclear age-related cataract, right eye: Status: Resolved
--- NOTE | 2023-12-21 12:58 | ROE_ITS ---
Date of service: 12/21/23 Time of Service: 12:58 Operative Note Operative Note DATE OF PROCEDURE: 12/21/23 PRE-OP DIAGNOSIS: Nuclear/cortical/posterior subcapsular cataract, right eye POST-OP DIAGNOSIS: same PROCEDURE: Cataract extraction using phacoemulsification with intraocular lens implant, right eye SURGEON: Skyler Zepeda ANESTHESIA TYPE: Local By Surgeon and MAC Refer to Anesthesia Record ESTIMATED BLOOD LOSS: 0 PATHOLOGY: none sent COMPLICATIONS: None Patient was transported to: same day Patient's condition: stable Implants: Mauro Clareon [id number] Indications: Progressive decreased vision due to cataract, right eye Procedure Description: CATARACT SURGERY OPERATIVE REPORT PREOPERATIVE DIAGNOSIS: Nuclear/cortical/posterior subcapsular cataract, right eye POSTOPERATIVE DIAGNOSIS: Same OPERATION: Cataract extraction using phacoemulsification with posterior chamber intraocular lens implant, right eye. IOL: IOL [employer] Supervisor/Model: Mauro Clareon [id number] IOL Power: + 24.5 diopters IOL Serial Number: [id number] Optic Diameter: 6.0mm Haptic/Overall Diameter: 13.0mm PHACO INFO: Mauro [employer], Incurion Vision System with OZil and Active Fluidics Cumulative Dispersed Energy (CDE): 11.74 seconds SURGEON: Skyler Zepeda MD, МАРИЯ ANESTHESIA: Monitored Anesthesia Care (MAC), with local sub-tenon's anesthetic infiltration COMPLICATIONS: None SPECIMENS: None INDICATIONS FOR PROCEDURE: The patient is a 73-year-old lady with history of diminished visual acuity in her right eye secondary to the development of significant nuclear/cortical/posterior subcapsular cataract. She significantly symptomatic that she desires cataract surgery and attempt to improve and maximize her vision. The option of cataract surgery was offered to the patient and she wished to proceed. See office notes for detailed information. PROCEDURE: The correct surgical eye was identified and marked as the right eye and the pupil was dilated in the preoperative area using mydriatics and cycloplegics. The dilated pupil size was 4.5 mm. The patient elected to proceed without oral sedation. The patient was brought to the operating room where cardiopulmonary monitoring was instituted and surgical time-out was performed, confirming the correct operative eye and IOL power. Topical anesthesia was administered and ophthalmic povidone-iodine 5% was instilled into the conjunctival fornices. The prashant-ocular area was prepped with Betadine 10% solution and draped in the usual sterile fashion for intraocular surgery, including an aperture drape. A Tegaderm transparent film dressing was cut in half and used to cover the lashes and lid margins. Care was taken to sequester the lashes and lid margins under the Tegaderm dressing. A lid speculum was placed between the lids of the operative eye and the Mauro [employer] Revalia operating microscope was maneuvered into position. Kit scissors were then used to make a conjunctival buttonhole approximately 6mm posterior to the limbus in the inferonasal quadrant. Blunt dissection was carried out to expose bare sclera, and a blunt-tipped sub-tenon?s anesthesia cannula was introduced and passed posteriorly along the globe where non- preserved plain lidocaine was injected into posterior sub-Tenon?s space. A sideport knife was used to make a paracentesis port. Intraocular phenylephrine/lidocaine was injected into the anterior chamber. The anterior chamber was then filled with viscoelastic. Dispersive viscoelastic was then used to Viscoat dilate the pupil, to approximately 5.0 mm. A keratome knife was used to construct a two--plane clear corneal tunnel extending 2.0mm into clear cornea. A flap was raised on the anterior capsule and capsulorhexis forceps were used to complete a continuous curvilinear capsulorhexis of 5.0 mm. Balanced salt solution was then used to perform cortical cleaving hydrodissection and nuclear hydrodelineation until the lens could be freely rotated within the capsular bag. The lens nucleus was then disassembled and removed within the capsular bag and iris plane using phacoemulsification. Residual cortical material was removed using the I/A handpiece. The posterior capsule was carefully polished to remove as much residual lens epithelial cells as safely possible. The capsular bag was then inflated and the anterior chamber deepened with cohesive viscoelastic. The lens implant described above was inserted into the capsular bag using the Mauro Autonome Injector. A Kuglen hook was used to dial the IOL into position. Residual viscoelastic was then removed first from posterior to the IOL, then from the anterior chamber using the I/A handpiece. The lens implant was noted to center nicely within the capsular bag. The incisions were stromally hydrated, and the anterior chamber was reformed using BSS. Then 0.5cc of moxifloxacin 1.0mg/ml were injected into the capsular bag and anterior chamber. The incisions were checked with a Weck spear and found to be secure. Several drops of ophthalmic povidone-iodine 5% were then applied to the eye followed by two drops of combination steroid/NSAID/antibiotic solution. The drapes were removed and a clear plastic protective eye shield was placed over the eye. The patient was then returned to Same Day Surgery in stable condition.
--- NOTE | 2023-12-21 13:25 | W.ANESPOSTOP ---
Postoperative Evaluation Date, Time and Location Date Performed: 12/21/23 Time Performed: 12:58 Patient Location: Day Surgery Unit Vital Signs Most Recent Imported Vital Signs: Most Recent Vital Signs Temp Pulse Resp BP Pulse Ox 36.4 C L 68 16 151/59 H 97 12/21/23 12:56 12/21/23 12:56 12/21/23 12:56 12/21/23 12:56 12/21/23 12:56 Pain Score Most Recent Pain Score: Most Recent Pain Score Pain Level 0 12/21/23 12:56 Assessment Mental Status: Awake (Alert & Oriented to Patient Baseline) Airway and Respiratory Function: Patent airway with normal (patient baseline) respiratory exam Cardiovascular Function: Hemodynamically Stable Hydration Status: Adequately Hydrated Nausea & Vomiting: No Nausea or Vomiting Pain: Pt. Denies Any Pain Peripheral Nerve Block: Other (Dr. Zepeda local remains in place)
== END 2023-12-21 13:30 | disposition home or self-care (01) ==
LOC: SUR 10:24
PROVIDERS: PCP Nurse Practitioner Family; Visit Provider Ophthalmology
PROC: (CPT 66984; principal; 2023-12-21 13:30)
DX: H25.041 Posterior subcapsular polar age-related cataract, right eye (principal); H25.011 Cortical age-related cataract, right eye; H25.11 Age-related nuclear cataract, right eye; I10 Essential (primary) hypertension
CPT/HCPCS: 66984; 00123; V2632; J2003

== ENCOUNTER 2024-01-04 09:35 | Day surgery (SDC) | payer MEDICARE, SELFPAY ==
[2024-01-04 10:12] VITALS: BP 126/55; PULSE 59; RESP 16; TEMP 36.4; O2SAT 95
--- NOTE | 2024-01-04 10:29 | ANES.PREOP_ITS ---
General Info Date of Service Date Performed: 01/04/24 Height: 5 ft Weight: 61.4 kg Body Mass Index (BMI): 26.4 Surgical Procedure: Operation Date: 01/04/24 11:25 Proposed Procedure Side Surgeon p Cataract Extraction with IOL Implant Left Skyler Zepeda MD Meds Allergies and Home Medications Allergies Allergy/AdvReac Type Severity Reaction Status Date / Time iodine Allergy Severe Per pt. Verified 01/04/24 10:22 slough right off and itch latex Allergy Mild Itching Verified 01/04/24 10:22 Penicillins Allergy Mild Swelling/Ed Verified 01/04/24 10:22 edson mold Allergy Unknown Anaphylaxis Verified 01/04/24 10:22 Home Medication Medication Instructions Recorded amlodipine 5 mg tablet 5 mg PO DAILY 04/24/16 atorvastatin 20 mg tablet (Lipitor) 20 mg PO DAILY 04/24/16 calcium carbonate 500 mg-vitamin 4 ea PO DAILY 04/24/16 D3 10 mcg (400 unit) tablet (Calcium 500 + D) cholecalciferol (vitamin D3) 50 2,000 unit PO DAILY 04/24/16 mcg (2,000 unit) capsule (Vitamin D3) hydrochlorothiazide 12.5 mg capsule 12.5 mg PO DAILY 04/24/16 levothyroxine 88 mcg tablet 88 mcg PO DAILY 04/24/16 lisinopril 40 mg tablet 40 mg PO DAILY 04/24/16 metoprolol tartrate 50 mg tablet 50 mg PO BID 10/26/20 tramadol 50 mg tablet 25 mg PO TID 10/26/20 acetaminophen 500 mg tablet 1,000 mg PO BID & HS daily 01/28/21 gabapentin 100 mg capsule 100 mg PO BID 07/28/22 ketoconazole 2 % topical cream 1 applic topical DAILY #120 grams 09/17/23 naloxone 4 mg/actuation nasal spray 4 mg intranasal Q3M PRN 09/17/23 Current Visit Medications: Current Medications Generic Name Dose Route Start Last Admin Trade Name Freq PRN Reason Stop Dose Admin Acetaminophen 1,000 mg 01/04/24 06:00 Acetaminophen 500 Mg Tab PO 02/03/24 05:59 Q4H PRN PRN Balanced Salt Solution 500 ml 01/04/24 06:00 Balanced Salt Soln.-Plus 500 Ml Bag OP 02/03/24 05:59 DIRECTED JIMMIE Miscellaneous Medication 0 ml 01/04/24 06:00 Prednisolone 1%, Moxifloxacin 0.5%, Bromfenac 0.09% 5ml Btl OS 02/03/24 05:59 DIRECTED [facility] Miscellaneous Medication 0 ml 01/04/24 06:00 Tropicam./Phenyleph. (1/2.5%) 10 Ml Btl OS 02/03/24 05:59 DIRECTED [facility] Tetracaine HCl 0 ml 01/04/24 06:00 Tetracaine 0.5% 4 Ml Btl OS 02/03/24 05:59 DIRECTED [facility] PFSH Active Problems Active Problems: Problem Status Onset Code Posterior subcapsular age-related cataract of left eye H25.042 Nuclear age-related cataract, left eye H25.12 Posterior subcapsular age-related cataract, right eye H25.041 Cortical age-related cataract, right eye H25.011 Nuclear age-related cataract, right eye H25.11 Cardiomyopathy I42.9 Left bundle branch block I44.7 Atherosclerosis of artery of both lower extremities I70.203 Nail dystrophy L60.3 Onychomycosis B35.1 Liver disease K76.9 Dyspnea on exertion R06.09 Sacroiliitis M46.1 Degenerative joint disease M19.90 Hypothyroidism E03.9 Kyphoscoliosis M41.9 Palpitations R00.2 Restless leg syndrome G25.81 Joint pain M25.50 Hx of hyperlipidemia Z86.39 HTN (hypertension) I10 Medical History Medical History Liver lesion Screening for colon cancer Enlarged heart enlarged heart, per pt. Per pt. f/u with PCP, not required to see building superintendent per History of abnormal electrocardiogram Per pt. stated I just want to let you know that whenever you hook me up to the cardiac monitors my EKG will be all over the place, and I havent had an EKG in 10+ years *Pt. unable to specify what this meant further--will obtain EKG per anesthesia provider (JOÃO) on DOS. Thyroid nodule Multiple, benign Medical History Comments:: LBBB Documented in 2005 Surgical History Surgical History History of colonoscopy (~01/2021) History of cardiac cath 2003 History of sterilization procedure History of hysterectomy due to h/o large fibroid tumor, benign History of thyroidectomy Tobacco Smoking/Tobacco Use Status: Never Alcohol Alcohol Intake: never Substance Use Substance use: Never Substance use type: does not use Vital Signs and Lab Results Vital Signs Most Recent Vital Signs in EMR: Most Recent Vital Signs Temp Pulse Resp BP Pulse Ox 36.4 C L 59 L 16 126/55 L 95 01/04/24 10:12 01/04/24 10:12 01/04/24 10:12 01/04/24 10:12 01/04/24 10:12 Lab Results Blood Type / Crossmatch: No Data to Display Complete Blood Count: No Data to Display Complete Metabolic Panel: No Data to Display Liver Function Panel: No Data to Display Coagulation Panel: No Data to Display Cardiac Panel: No Data to Display Arterial Blood Gas: No Data to Display Venous Blood Gas: No Data to Display Pancreas Panel: No Data to Display Thyroid Panel: No Data to Display Infectious Disease: No Data to Display Blood Cultures: No Data to Display Toxicology Panel: No Data to Display Imaging and Studies Imaging and Studies Study information below may be from another EMR and interpreted by another provider. Please see original notes in EMR for more complete details. EKG Summary: EKG PATIENT NAME: Nicolasa Deshpande UNIT #: [id number] ORDERING PROVIDER: Zach Milner M.D. PRIMARY CARE PROVIDER: MICHELLE RAMOS NP DATE/TIME OF SERVICE: 09/24/23 1352 : 1950 PERFORMING LOCATION: .CARD APPROVED REPORT Exam: Resting ECG Reason for Exam: chest pain Patient Location: O HR:77 bpm ECG Measurements Heart Rate 77 AXIS WY 181 P 38 QRSd 168 QRS 9 QT 413 T184 QTc 468 Conclusion Sinus rhythm...normal P axis, V-rate 50- 99 Left bundle branch block...QRSd>120, broad/notched R Baseline wander in lead(s) II,III,aVR,aVL,aVF,V1,V2,V3,V4,V5 ------- <Electronically signed by ZACH MILNER MD in OV> E-Sign Date: 09/24/23 E-Sign Time: 1408 Stress Test Summary: Patient Name: Nicolasa Deshpande Unit #: [id number] Loc: DI Ordering Provider: MICHELLE RAMOS HOURLY ASSOCIATE Status: [facility] Primary Care Provider: MICHELLE RAMOS HOURLY ASSOCIATE Date of Exam: 09/10/23 Sex: F Admission Date: 09/10/23 : 1950 Age: 73 APPROVED REPORT Exam: Pharmacologic Patient Location: Out-Patient Room/Bed: Stress Nurse: Bela Brown RN Ordering Provider:MICHELLE RAMOS, Contact Number: [phone] BMI: 26.07 Baseline Rhythm: Sinus Rhythm Comment: Left BBB Indications: Other forms of dyspnea, Chest pain Medical History Medical History: HLD, HTN, hypothyroidism, DJD, RLS, Kyphoscoliosis Cardiac Medications: Amlodipine, Atorvastatin, HCTZ, Metoprolol Tartrate, Lisinopril, Gabapentin, Levothyroxine Allergies: Iodine, Latex, Penicillins, mold Cardiac Risk Factors: +family history, +HTN, +HLD Previous Cardiac Procedures: Cardiac cath Pretest Chest Pain Characteristics: None Exercise History: Indeterminate Physical Disabilities: Scoliosis Lung Sounds: Lungs dimiinished, clear Heart Sounds: Regular Stress Test Details Test: Pharmacologic stress testing performed using 0.4 mg of regadenoson per 5 mL given IV over 10 seconds. Reason for pharmacologic stress test: LBBB. Nuclear Acquisition: Rest Tc-99m/Stress Tc-99m 1 day Rest Isotope: Tc-99m Sestamibi. Dose: 10 Date: 09/10/2023 Injection Time: 08:45 Stress Isotope: Tc-99m Sestamibi. Dose: 30 Date: 09/10/2023 Injection Time: 10:05 HR Resting HR Supine: 64 bpmMax Heart Rate (APMHR): 145.992998 bpm Target HR (85% APMHR): 123.574124 bpm Max HR Achieved: 92 bpm % of APMHR: 63.45 Recovery HR: 75 bpm BP Resting BP Supine: 158/70 mmHg Max BP: 162/74 mmHg Recovery BP: 150/58 mmHg ECG Resting ECG: Sinus Rhythm, LBBB Ectopy: None Stress ECG: Sinus Rhythm, LBBB ST Change: None Arrhythmia: None Recovery ECG: Sinus Rhythm, LBBB Recovery ST Change: None Recovery Arrhythmia: None Clinical Stress Symptoms: Brief shortness of breath Angina Score: None Rate Pressure Product: 83065 Stress ECG Conclusion 1. Resting echocardiogram showed a left bundle branch block. 2. Patient underwent testing using pharmacologic stress with regadenoson 3. Peak heart rate achieved was 63% of predicted for age 4. Electrocardiographic portion of the test was nondiagnostic 5. See MPI report Stress Test Summary [id number] Zrhfui58587/70 1 min post Lexiscan [id number]/74brief shortness of breath 3 min post Lexiscan ciuqtmtqn03078/64 6 min post Lexiscan fzoydxmlk32200/58 MPI Conclusion Myocardial perfusion is normal. There is no ischemia or evidence of prior infarction EF is 42% Wall motion is grossly normal Radiologist Interpretation Radiologist Interpretation by: Isai Henriquez MD Interpretation Date/Time: 09/10/2023 16:57:00 Ordered By: MICHELLE RAMOS NP CC: Dictated By: Zach Milner M.D. 09/10/23 1025 <Electronically signed by Zach Milner M.D. in OV> 09/11/23 0805 Transcribed By: Zach Milner MD 09/10/23 1025 This is privileged, confidential information intended only for the provider named. Any use or distribution by any person other than this provider is strictly prohibited. If you receive this report in error, please notify us immediately at [phone] and return the original report to us at the address above. Thank-you. Echocardiogram Summary: atient Name: Nicolasa Deshpande Unit #: [id number] Loc: DI Ordering Provider: MICHELLE RAMOS HOURLY ASSOCIATE Status: [facility] Primary Care Provider: MICHELLE RAMOS HOURLY ASSOCIATE Date of Exam: 09/21/23 Sex: F Admission Date: 09/21/23 : 1950 Age: 73 APPROVED REPORT EXAM: Comprehensive 2D, Doppler, and color-flow Echocardiogram Patient Location: Out-Patient [employer] Coordinator: Clari Jameson RDCS (AE) Indications: Dyspne on exertion, Chest pain, h/o abnormal stress test Other Information Study Quality: Adequate. Technically limited study due to body habitus parasternal imaging was limited.. Conclusion Normal left ventricular wall thickness and chamber size. Moderate left ventricular dysfunction with an ejection fraction of 40%. There are wall motion abnormalities involving the anterior and anteroapical segments Normal right ventricular size and function Moderately dilated left atrium Sclerotic aortic valve with trace to mild regurgitation Normal mitral valve with trace to mild regurgitation Estimated right ventricular systolic pressure is 25 mm Hg Wall motion Left Ventricle Technically limited parasternal imaging. Left ventricular systolic function is moderately decreased. Regional wall motion abnormalities are noted. Septal and anterolateral wma There is no ventricular septal defect visualized. LVEF is 41%. Right Ventricle The right ventricle is normal size. The right ventricular systolic function is normal. Atria Left atrium is moderately dilated. The right atrium size is normal. The interatrial septum is intact with no evidence for an atrial septal defect. Aortic Valve The Aortic valve is sclerotic. There is no aortic valvular stenosis. Trace to mild aortic regurgitation. Mitral Valve The mitral valve is normal in structure. No evidence of mitral valve stenosis. Trace to mild mitral regurgitation. Tricuspid Valve The tricuspid valve is normal in structure. There is no tricuspid valve stenosis. Trace tricuspid regurgitation. The RVSP is 24.7mmHg. Pulmonic Valve The pulmonary valve is normal in structure. There is no pulmonic valvular stenosis. Trace pulmonic regurgitation. Great Vessels The aortic root is normal in size. Ascending aorta is not well visualized. Aortic arch is normal in caliber. IVC is normal in size and collapses >50% with inspiration. Pericardium There is no pericardial effusion. 2D Dimensions Ao Root d 3.00 cm F: 2.7 - 3.3 M-Mode TAPSE 2.35 cm (M/F) >1.7 Auto EF LV EDV R9S252.2 mLLV EDV K1G759.3 mLLV EDV BP117.4 mL LV ESV A4C74.4 mLLV ESV A2C66.8 mLLV ESV BP69.8 mL LVEF(%) A4C37.5 %LVEF(%) A2C40.5 %LVEF(%) BP40.5 % LV SV A4C44.7 mlLV SV A2C45.5 mlLV SV BP47.6 ml LV CO A4C2.7 L/minLV CO A2C2.8 L/minLV CO BP2.7 L/min HR A4C60.41 BPMHR A2C60.81 BPMLV EDV Index (BP) LV Strain Long Pk Overal Avg (s) 14.63 LA Volume LA Length A4C5.5 cmLA Length A2C6.3 cm LA Area A4C s 22.42 cm2LA Area A2C s 25.23 cm2 LA Vol A4C A-L77.11 mLLA Vol A2C A-L85.69 mLLA Vol Biplane A-L86.8 mL LA Vol/BSA A4C A-LLA Vol/BSA A2C A-LLA Vol/BSA BP A-L 53.9 mL/m2 LA Vol A4C MOD72.2 mLLA Vol A2C MOD81.9 mLLA Vol BP MOD81.8 mL RA Volume RA Area A4C13.0 cm2RA ESV A4C (A-L)30.5mLRA Vol/BSA A4C A-L RA Length A4C4.7 cmRA ESV A4C (MOD)28.0mL LV Diastology MV E' medial0.053 (>0.07 m/s)MV E Vmax 0.79 (0.4-1.3 m/s) MV E/E' MED14.99 (<14)MV A Vmax 0.75 (0.4-1.3 m/s) MV E' lateral0.076 (>0.1 m/s)E/A Ratio 1.1 MV E/E' LAT10.40 (<14) MV E' Average0.064 m/s MV E/E'(average)12.28 Aortic Valve AoV Vmax1.33 m/sLVOT Vmax 1.04 m/s AoV Peak Grad35.6 mmHgLVOT Peak Grad 4.3 mmHg AoV Area (Vmax)2.57 iv4XTWM VTI0.245 m AoV VTI0.303 mLVOT Mean Grad 2.4 mmHg AoV Mean Tigre.0.89 m/sLVOT SV 80.42 mL AoV Mean Grad3.7 mmHgLVOT Diam s 2.00 cm AoV Area (VTI)2.66 cm2AV Regurg Peak Gr.64.25 mmHg Velocity Ratio 0.78 AR Decel Slope3.1m/sec2 AR DT 1294 msec AR PHT 375 msec AR Vmax 4.01 m/s Mitral Valve MV DT 160 (160-240 msec) MV Vmax TIPS 0.82 m/s MV Mean Grad 1.6 (<2mmHg) MV VTI 0.323 m Pulmonary Valve PV Vmax 0.81 (0.5-1.5 m/s)RVOT Vmax 0.59 m/s PV Peak Grad 2.6 mmHgRVOT Peak Gr.1.4 mmHg PV Mean Vel0.56 m/sRVOT VTI0.155 m PV Mean Grad 1.5 mmHgRVOT Mean Gr.0.9 mmHg Tricuspid Valve RA Pressure 3.00 mmHgTR Vmax 2.33 m/s TR Peak Grad 21.7 mmHg RVSP (TR) 24.7 mmHg Ordered By: MICHELLE RAMOS NP CC: Dictated By: Zach Milner M.D. 09/21/23 1011 <Electronically signed by Zach Milner M.D. in OV> 09/21/23 1104 Transcribed By: Zach Milner MD 09/21/23 1011 This is privileged, confidential information intended only for the provider named. Any use or distribution by any person other than this provider is strictly prohibited. If you receive this report in error, please notify us immediately at [phone] and return the original report to us at the address above. Thank-you. Anesthesia Assessment and Plan Anesthesia History Personal History: No History of Anesthesia Complications Family History: No Family History of Anesthesia Complications Exercise Tolerance Exercise Tolerance: Metabolic Equivalents<4 Pertinent Negatives Pertinent Negatives: No Major Cardiovascular Symptoms or Complaints and No Major Pulmonary Symptoms or Complaints Cardiac & Pulmonary Exam Cardiac Exam: Normal S1/S2 Heart Sounds Pulmonary Exam: Clear Bilateral Breath Sounds Implantable Cardiac Device Does patient have a Pacemaker or an ICD?: No Airway Exam Known Difficult Airway: No Mallampati Class: 1 Mouth Opening: Normal (> 3cm) Thyromental Distance: Greater than 3 cm Neck Range of Motion: Full ROM Neck Circumference: Normal Teeth Condition: Normal Dentition Airway Comments: Top right crown ASA Classification ASA Score: ASA 3 Emergency Case?: No NPO Status NPO Status: NPO Clears >2 hours, Solids >8 hours Anesthesia Plan Resuscitation Status: Full Code Anesthesia Technique: MAC Anesthesia Airway Planned: Natural Airway Monitors Used: Standard Monitors
[2024-01-04 10:33] VITALS: BMI 26.4
[2024-01-04] MEDS: Duovisc Viscoelastic System EACH 1 EACH (11:27)
[2024-01-04] MEDS: Lidocaine 1% Pres-Free 5 ML VIAL (11:28)
[2024-01-04] MEDS: Povidone-Iodine Ophth 30 ML BTL (11:29)
[2024-01-04] MEDS: Balanced Salt Soln.-PLUS 500 ML BAG OP (11:30)
[2024-01-04] MEDS: Tetracaine 0.5% 4 ML BTL OS (11:31)
[2024-01-04 11:45] VITALS: BP 134/53; PULSE 58; RESP 18; TEMP 36.6; O2SAT 98
--- NOTE | 2024-01-04 11:45 | W.PM.DSUDISC ---
Date of service: 01/04/24 Time of Service: 11:45 Discharge Plan Disposition Patient Disposition: Home Discharge Details Attending Provider: Skyler Zepeda Primary Care Provider: MICHELLE RAMOS Home Meds and New Rx's Prescriptions: No Action acetaminophen 500 mg tablet 1,000 mg PO BID & HS naloxone 4 mg/actuation spray,non-aerosol 4 mg intranasal Q3M PRN Patient Comments: 01/04/24: pt reports this is prescribed just in case as takes pain meds Rx Instructions: spray 1 dose into ONE nostril; alternate nostrils w each dose until help arrives ketoconazole 2 % cream 1 applic topical DAILY Qty: 120 6RF Rx Instructions: Apply to toenails once daily tramadol 50 mg tablet 25 mg PO TID Rx Instructions: OK to take 1/2 tab BID. metoprolol tartrate 50 mg tablet 50 mg PO BID calcium carbonate-vitamin D3 [Calcium 500 + D] 1 EACH tablet 4 ea PO DAILY Patient Comments: 04/24/16 Up to 4 daily. C atorvastatin [Lipitor] 20 MG tablet 20 mg PO DAILY amlodipine 5 MG tablet 5 mg PO DAILY levothyroxine 88 MCG tablet 88 mcg PO DAILY hydrochlorothiazide 12.5 MG capsule 12.5 mg PO DAILY lisinopril 40 MG tablet 40 mg PO DAILY cholecalciferol (vitamin D3) [Vitamin D3] 2,000 UNIT capsule 2,000 unit PO DAILY gabapentin 100 mg capsule 100 mg PO BID Discharge Instructions Stand Alone Forms: DSU Post-Op CataractMarybel (DSU) Discharge Orders Discharge Orders: Discharge Order (Routine); Ordered 01/04/24 Ordered By: Skyler Zepeda DS: Diagnosis Discharge Diagnosis (1) Posterior subcapsular age-related cataract of left eye: Status: Resolved (2) Nuclear age-related cataract, left eye: Status: Resolved
--- NOTE | 2024-01-04 11:45 | W.PM.OP ---
Date of service: 01/04/24 Time of Service: 11:46 Operative Note Operative Note DATE OF PROCEDURE: 01/04/24 PRE-OP DIAGNOSIS: Nuclear/posterior subcapsular cataract, left eye POST-OP DIAGNOSIS: same PROCEDURE: Cataract extraction using phacoemulsification with intraocular lens implant, left eye SURGEON: Skyler Zepeda ANESTHESIA TYPE: Local By Surgeon and MAC Refer to Anesthesia Record PATHOLOGY: none sent COMPLICATIONS: None Patient was transported to: same day Patient's condition: stable Implants: Mauro Clareon [id number] Indications: Progressive decreased vision due to cataract, left eye Procedure Description: CATARACT SURGERY OPERATIVE REPORT PREOPERATIVE DIAGNOSIS: Nuclear/posterior subcapsular cataract, left eye POSTOPERATIVE DIAGNOSIS: Same OPERATION: Cataract extraction using phacoemulsification with posterior chamber intraocular lens implant, left eye. IOL: IOL Rod Machine Operator/Model: Mauro Clareon [id number] IOL Power: + 24.5 diopters IOL Serial Number: [id number] Optic Diameter: 6.0mm Haptic/Overall Diameter: 13.0mm PHACO INFO: MauroEat Localurion Vision System with OZil and Active Fluidics Cumulative Dispersed Energy (CDE): 8.90 seconds SURGEON: Skyler Zepeda MD, МАРИЯ ANESTHESIA: Monitored Anesthesia Care (MAC), with local sub-tenon's anesthetic infiltration COMPLICATIONS: None SPECIMENS: None INDICATIONS FOR PROCEDURE: The patient is a 73-year-old lady with history of diminished visual acuity in both eyes secondary to the development of bilateral nuclear/posterior subcapsular cataract. She has already undergone cataract surgery in the right eye and is doing well postoperatively. She now presents for cataract surgery in the left eye. See office notes for detailed information. PROCEDURE: The correct surgical eye was identified and marked as the left eye and the pupil was dilated in the preoperative area using mydriatics and cycloplegics. The dilated pupil size was 5.0 mm. The patient elected to proceed without oral sedation. The patient was brought to the operating room where cardiopulmonary monitoring was instituted and surgical time-out was performed, confirming the correct operative eye and IOL power. Positioning was challenging due to the patient's significant kyphoscoliosis. Topical anesthesia was administered and ophthalmic povidone-iodine 5% was instilled into the conjunctival fornices. The rpashant-ocular area was prepped with Betadine 10% solution and draped in the usual sterile fashion for intraocular surgery, including an aperture drape. A Tegaderm transparent film dressing was cut in half and used to cover the lashes and lid margins. Care was taken to sequester the lashes and lid margins under the Tegaderm dressing. A lid speculum was placed between the lids of the operative eye and the Mauro LuxOR Revalia operating microscope was maneuvered into position. Kit scissors were then used to make a conjunctival buttonhole approximately 6mm posterior to the limbus in the inferonasal quadrant. Blunt dissection was carried out to expose bare sclera, and a blunt-tipped sub-tenon?s anesthesia cannula was introduced and passed posteriorly along the globe where non-preserved plain lidocaine was injected into posterior sub-Tenon?s space. A sideport knife was used to make a paracentesis port. Intraocular phenylephrine/lidocaine was injected into the anterior chamber. The anterior chamber was then filled with viscoelastic. A keratome knife was used construct a two-plane clear corneal tunnel extending 2.0mm into clear cornea. A flap was raised on the anterior capsule and capsulorhexis forceps were used to complete a continuous curvilinear capsulorhexis of 5.0 mm. Balanced salt solution was then used to perform cortical cleaving hydrodissection and nuclear hydrodelineation until the lens could be freely rotated within the capsular bag. The lens nucleus was then disassembled and removed within the capsular bag and iris plane using phacoemulsification. Residual cortical material was removed using the irrigation/aspiration handpiece. The posterior capsule was carefully polished to remove as much residual lens epithelial cells as safely possible. The capsular bag was then inflated and the anterior chamber deepened with viscoelastic. The lens implant described above was inserted into the capsular bag using the Mauro Autonome Injector. A Kuglen hook was used to dial the IOL into position. Residual viscoelastic was then removed first from posterior to the IOL, then from the anterior chamber using the I/A handpiece. The lens implant was noted to center nicely within the capsular bag. The incisions were stromally hydrated, and the anterior chamber was reformed using BSS. Then 0.5cc of moxifloxacin 1.0mg/ml were injected into the capsular bag and anterior chamber. The incisions were checked with a Weck spear and found to be secure. Several drops of ophthalmic povidone-iodine 5% were then applied to the eye followed by two drops of combination steroid/NSAID/antibiotic solution. The drapes were removed and a clear plastic protective eye shield was placed over the eye. The patient was then returned to Same Day Surgery in stable condition.
--- NOTE | 2024-01-04 12:12 | W.ANESPOSTOP ---
Postoperative Evaluation Date, Time and Location Date Performed: 01/04/24 Time Performed: 11:48 Patient Location: Day Surgery Unit Vital Signs Most Recent Imported Vital Signs: Most Recent Vital Signs Temp Pulse Resp BP Pulse Ox 36.6 C 58 L 18 134/53 L 98 01/04/24 11:45 01/04/24 11:45 01/04/24 11:45 01/04/24 11:45 01/04/24 11:45 Pain Score Most Recent Pain Score: Most Recent Pain Score Pain Level 0 01/04/24 11:45 Assessment Mental Status: Awake (Alert & Oriented to Patient Baseline) Airway and Respiratory Function: Patent airway with normal (patient baseline) respiratory exam Cardiovascular Function: Hemodynamically Stable Hydration Status: Adequately Hydrated Nausea & Vomiting: No Nausea or Vomiting Pain: Pt. Denies Any Pain Peripheral Nerve Block: Patient did not receive a nerve block
== END 2024-01-04 12:06 | disposition home or self-care (01) ==
LOC: SUR 09:36
PROVIDERS: PCP Nurse Practitioner Family; Visit Provider Ophthalmology
PROC: (CPT 66984; principal; 2024-01-04 11:15)
DX: H25.042 Posterior subcapsular polar age-related cataract, left eye (principal); H25.12 Age-related nuclear cataract, left eye; I10 Essential (primary) hypertension; I42.9 Cardiomyopathy, unspecified
CPT/HCPCS: 66984; 00123; V2632; J2003

== ENCOUNTER 2024-10-29 10:53 | Outpatient (REF) | payer MEDICARE, SELFPAY ==
[2024-10-29 15:36] LABS: HCT 42.9 % (36.0-46.0); HGB 13.4 g/dL (11.2-15.7); MCH 28.8 pg (27.0-33.0); MCHC 31.2 % (32.0-36.0); MCV 92 fL (80-95); MPV 9.8 fL (8.0-11.0); Platelet Count 230 10^3/uL (130-400); RBC 4.65 10^6/uL (3.93-5.22); RDW 13.9 % (11.7-14.6); RDW-SD 46.9 fL; WBC 7.31 10^3/uL (4.4-10.8)
[2024-10-29 18:19] LABS: ALT 26 U/L (14-59); AST 20 U/L (15-37); Albumin 3.9 g/dL (3.4-5.0); Alkaline Phosphatase 100 U/L (46-116); Anion Gap 13.6 mmol/L (3-11); BUN 18 mg/dL (7-18); Bilirubin, Total 0.6 mg/dL (0.2-1.0); CO2 24.4 mmol/L (21.0-32.0); Calcium 9.5 mg/dL (8.5-10.1); Chloride 104 mmol/L (98-107); Estimated GFR 58.39 (mL/min/1.73m2); Glucose 94 mg/dL (74-106); Potassium 4.1 mmol/L (3.5-5.1); Sodium 142 mmol/L (136-145); TSH (W/Ref FT4) 1.82 uIU/mL (0.36-3.74); Total Protein 6.4 g/dL (6.4-8.2)
[2024-10-29 19:36] LABS: Iron 78 ug/dL (50-170); Total Iron Binding Capacity 369 ug/dL (250-450)
[2024-10-29 19:46] LABS: Ferritin 37 ng/mL (8-252)
== END 2024-10-29 10:54 | disposition home or self-care (01) ==
LOC: NCHCN 10:53
PROVIDERS: PCP Nurse Practitioner Family; Visit Provider Nurse Practitioner Family
DX: R53.83 Other fatigue (principal)
CPT/HCPCS: 80053; 85027; 82728; 83540; 83550; 84443